=== PATIENT | male | born 1940 | race Caucasian/White ===

== ENCOUNTER → 2017-08-21 13:27 | Outpatient (CLI) | payer MEDICARE, SELFPAY ==
--- NOTE | 2017-08-21 13:38 | VDLE_ITS ---
Reason For Study: RT LEG PAIN RIGHT GSV is normal. CFV is compressible, spontaneous, phasic, competent and demonstrates normal augmentation. FV is compressible, spontaneous, phasic, competent and demonstrates normal augmentation. POP V is compressible, spontaneous, phasic, competent and demonstrates normal augmentation. T/P Trunk is compressible. PTV is compressible. RT PerV is compressible. Procedure Exam performed in department. A preliminary report was called and/or faxed to DR GARAY. Interpretation Summary Deep veins of the right lower extremity are patent and compressible segmentally. There is no evidence of right lower extremity deep vein thrombosis. Valvular competence appears intact within the proximal deep venous system on the right . The right greater saphenous vein appears patent and compressible segmentally. Ordering Physician: Wilmer Garay Referring Physician: ELIUD MARTIN Performed By: Piper Sterling, BHARGAV, RVT
== END ==
PROVIDERS: Family Provider Family Medicine; PCP Family Medicine; Visit Provider Orthopaedic Surgery
DX: M79.604 Pain in right leg (principal)
CPT/HCPCS: 93971

== ENCOUNTER → 2018-06-04 07:43 | Outpatient (CLI) | payer MEDICARE, SELFPAY ==
--- NOTE | 2018-06-04 07:48 | US_ITS ---
STUDY: ABDOMINAL ULTRASOUND - RIGHT UPPER QUADRANT REASON FOR VISIT: Male, 77 years old. Right upper quadrant pain. TECHNIQUE: Ultrasound evaluation of the right upper quadrant was performed with real-time and static glynn-scale imaging. TECHNICAL QUALITY: Adequate. COMPARISON: None. FINDINGS: Liver: The liver measures 16.5 cm. There is increased echogenicity consistent with fatty infiltration. The bile ducts are within normal limits. There is hepatic color flow. The direction of portal flow is hepatopetal. There is no demonstrated mass lesion. Gallbladder: Normal distended gallbladder. The gallbladder wall measures 2.2 mm. There is a negative sonographic Alfonso's sign. There is no pericholecystic fluid. There are no gallstones. Common Bile Duct (C.B.D.): The common bile duct measures 2.7 mm. Pancreas: Normal size of the head, body and tail of the pancreas. There is normal echogenicity of the pancreas. There is no demonstrated pancreatic mass or cyst. Right Kidney: Normal size of the right kidney. The right kidney measures 11.9 cm in length. Normal renal cortex. There is a 10.7 x 9.7 x 11.7 cm simple appearing right renal cyst. There is no right hydronephrosis. US/Abdomen Limited IMPRESSION: Fatty infiltration of the liver. 10.7 x 9.7 x 1.7 cm right renal cyst. Electronically Signed: Petrona Ratliff MD at 21:31 EST Tel , Service support ,
== END ==
PROVIDERS: Family Provider Family Medicine; PCP Family Medicine; Referring Provider Family Medicine; Visit Provider Family Medicine
DX: R10.11 Right upper quadrant pain (principal)
CPT/HCPCS: 76705

== ENCOUNTER → 2024-05-27 | Outpatient (CLI) | payer MEDICARE, SELFPAY ==
[2024-05-27 13:13] LABS: Hematocrit 44.8 % (40-54); Hemoglobin 14.7 g/dL (13.0-16.5); Mean Corp Hgb Conc 32.8 g/dL (32-36); Mean Corpuscular Hgb 30.7 pg (27.0-32.0); Mean Corpuscular Volume 93.5 fL (80-94); Mean Platelet Vol. 11.7 fl (6.2-12.0); Platelet Count 187 K/mm3 (150-450); RBC Distribution Width CV 13.6 % (11.6-14.6); RBC Distribution Width SD 46.5 fl (35.1-43.9); Red Blood Count 4.79 M/mm3 (4.6-6.2); White Blood Count 6.2 K/mm3 (4.4-11.0)
[2024-05-27 19:37] LABS: Vitamin D,25 Hydroxy 35.7 ng/mL (30-100)
[2024-05-28 04:51] LABS: PTHIN 77 pg/mL (11-61)
[2024-05-28 05:23] LABS: AST(SGOT) 27 U/L (<=37); Alanine Aminotransfer ALT/SGPT 26 U/L (<=46); Albumin, Serum 4.3 g/dL (3.4-4.8); Alkaline Phosphatase 78 U/L (40-129); Anion Gap 10 (5-15); BUN 23 mg/dL (4-19); BUN/Creat Ratio 20.7 RATIO (10-20); Calcium 10.5 mg/dL (7.6-11.0); Carbon Dioxide 29.8 mmol/L (22.0-29.0); Chloride 104 mmol/L (96-108); Creatinine, Serum 1.1 mg/dL (0.8-1.3); EST Glomerular Filtration Rate 66 (>60); Globulin 2.2 g/dL (2.2-4.2); Glucose 100 mg/dL (70-99); Iron 54 ug/dL (65-175); Potassium 4.4 mmol/L (3.3-5.1); Protein, Total 6.5 g/dL (5.9-8.4); Sodium Level 143 mmol/L (133-145); Total Bilirubin 0.48 mg/dL (0.00-1.30)
[2024-05-28 12:00] LABS: Cholesterol 125 mg/dL (<=200); High Density Lipoprotein 60 mg/dL; Low Density Lipoprotein Calc. 51 mg/dL; Triglycerides 69 mg/dL; Very Low Density Lipoprotein 14 mg/dL (5-40); cholesterol:hdl ratio screen 2.08
== END | disposition home or self-care (01) ==
LOC: MFPLAB 09:42
PROVIDERS: PCP Family Medicine; Referring Provider Family Medicine; Visit Provider Family Medicine
DX: E78.5 Hyperlipidemia, unspecified (principal); N18.9 Chronic kidney disease, unspecified
CPT/HCPCS: 36415; 80053; 80061; 82306; 83540; 83970; 85027

== ENCOUNTER → 2024-06-10 | Outpatient (CLI) | payer MEDICARE, SELFPAY ==
[2024-06-10 13:21] LABS: Anion Gap 13 (5-15); BUN 34 mg/dL (4-19); BUN/Creat Ratio 26.1 RATIO (10-20); Calcium,Total 10.6 mg/dL (7.6-11.0); Carbon Dioxide 29.3 mmol/L (21.0-32.0); Chloride 100 mmol/L (98-108); Creatinine, Serum 1.29 mg/dL (0.70-1.20); EST Glomerular Filtration Rate 56 (>60); Glucose 104 mg/dL (70-99); Potassium 4.1 mmol/L (3.3-5.1); Sodium Level 142 mmol/L (133-145)
== END | disposition home or self-care (01) ==
LOC: MFPLAB 10:31
PROVIDERS: PCP Family Medicine; Referring Provider Family Medicine; Visit Provider Family Medicine
DX: N18.9 Chronic kidney disease, unspecified (principal)
CPT/HCPCS: 36415; 80048

== ENCOUNTER 2024-07-09 11:12 | Outpatient (CLI) | payer MEDICARE, SELFPAY ==
[2024-07-09 11:15] LABS: Red Blood Cells-Urine 0 SEEN /hpf (0-5)
[2024-07-09 12:24] LABS: Hematocrit 45.1 % (40-54); Hemoglobin 15.1 g/dL (13.0-16.5); Mean Corp Hgb Conc 33.5 g/dL (32-36); Mean Corpuscular Hgb 30.5 pg (27.0-32.0); Mean Corpuscular Volume 91.1 fL (80-94); Mean Platelet Vol. 11.7 fl (6.2-12.0); Platelet Count 171 K/mm3 (150-450); RBC Distribution Width CV 14.1 % (11.6-14.6); RBC Distribution Width SD 46.8 fl (35.1-43.9); Red Blood Count 4.95 M/mm3 (4.6-6.2); White Blood Count 7.8 K/mm3 (4.4-11.0)
[2024-07-09 12:25] LABS: Erythrocyte Sedimentation Rate 2 mm/hr (0-20)
[2024-07-09 13:11] LABS: Glucose, Dipstick Normal (Normal); Ketone-Dipstick Negative (Negative); Leukocyte Esterase-Dipstick Negative /ul (Negative); Nitrite-Dipstick Negative (Negative); Occult Blood-Urine Negative /ul (Negative); Protein-Dipstick Negative (Negative); Specific Gravity, Urine 1.015 (1.002-1.030); Urine Bilirubin Dipstick Negative (Negative); Urine Urobilinogen Normal (Normal)
[2024-07-09 13:15] LABS: Color, Urine STRAW (Yellow); Urine Clarity Cloudy (Clear)
[2024-07-09 13:40] LABS: Amorphous Sediment 4+
[2024-07-09 13:41] LABS: Mucous, Urine RARE /hpf (<or=2+); Squamous Epithelial Cells - UA 0-5 SEEN /hpf (0-5)
[2024-07-09 13:42] LABS: Bacteria 1+ /hpf (None Seen); White Blood Cells 0-5 SEEN /hpf (0-5)
[2024-07-09 15:54] LABS: ALB/GLOB Ratio 1.7 RATIO (0.9-2.4); AST(SGOT) 24 U/L (<=37); Alanine Aminotransfer ALT/SGPT 27 U/L (<=46); Albumin, Serum 4.2 g/dL (3.4-4.8); Alkaline Phosphatase 71 U/L (40-129); Anion Gap 10 (5-15); BUN 28 mg/dL (4-19); BUN/Creat Ratio 24.6 RATIO (10-20); Calcium,Total 10.1 mg/dL (7.6-11.0); Chloride 101 mmol/L (98-108); Creatinine, Serum 1.14 mg/dL (0.70-1.20); EST Glomerular Filtration Rate 65 (>60); Globulin 2.5 g/dL (2.2-4.2); Glucose 97 mg/dL (70-99); Potassium 3.7 mmol/L (3.3-5.1); Protein, Total 6.7 g/dL (5.9-8.4); Sodium Level 141 mmol/L (133-145); Total Bilirubin 0.58 mg/dL (0.00-1.30)
[2024-07-09 17:11] LABS: Iron 54 ug/dL (65-175)
[2024-07-09 17:13] LABS: Vitamin B12 643 pg/mL (180-914)
== END 2024-07-09 23:59 | disposition home or self-care (01) ==
LOC: MFPLAB 11:13
PROVIDERS: PCP Family Medicine; Referring Provider Family Medicine; Visit Provider Family Medicine
DX: R41.89 Other symptoms and signs involving cognitive functions and awareness (principal); F03.90 Unspecified dementia, unspecified severity, without behavioral disturbance, psychotic disturbance, mood disturbance, and anxiety
CPT/HCPCS: 80053; 81001; 82306; 82607; 83540; 84443; 85027; 85652; 87086

== ENCOUNTER → 2024-07-14 | Outpatient (CLI) | payer MEDICARE, SELFPAY ==
--- NOTE | 2024-07-14 10:09 | VDLE_ITS ---
Reason For Study Reason For Study: Swelling RLE RIGHT LEFT GSV is normal. CFV is compressible, spontaneous, phasic, competent, CFV is compressible, spontaneous, phasic, competent and demonstrates normal augmentation. and demonstrates normal augmentation. FV is compressible, spontaneous, phasic, competent and demonstrates normal augmentation. POP V is compressible, phasic, and INCOMPETENT for greater than 1.0 second. T/P Trunk is compressible. PTV is compressible. RT PerV is compressible. SFJ is competent and measures 0.38cm x 0.39 cm. GSV proximal thigh measures 0.37cm x 0.34 cm. GSV at knee measures 0.35cm x 0.40 cm. GSV is competent throughout. SSV mid calf is competent and measures 0.30cm x 0.31 cm. ASV proximal calf is INCOMPETENT for greater than 0.5 seconds and measures 0.18cm x 0.20 cm. Procedure This is a venous duplex using B-mode, color flow and spectral Doppler. Exam performed in department. A preliminary report was called and/or faxed to Tamie SNIDER. VL/Venous Duplex US, Unilateral Interpretation Summary Deep veins of the right lower extremity are patent and compressible segmentally . There is no evidence of right lower extremity deep vein thrombosis. The right great saphenous vein appears patent a nd compressible segmentally. Positive for reflux in the right popliteal vein, accessory saphenous vein in th e calf Ordering Physician: Tamie Hannah Referring Physician: Cecil Kwok Performed By: Sandra Rose, BHARGAV, RVT
== END | disposition home or self-care (01) ==
LOC: CVS 10:07
PROVIDERS: PCP Family Medicine; Referring Provider Physician Assistant; Visit Provider Physician Assistant
DX: S80.821A Blister (nonthermal), right lower leg, initial encounter (principal); M79.89 Other specified soft tissue disorders; X58.XXXA Exposure to other specified factors, initial encounter
CPT/HCPCS: 93971

== ENCOUNTER → 2024-09-06 | Outpatient (CLI) | payer MEDICARE, SELFPAY ==
--- OUTSIDE RECORDS SUMMARY | 2024-09-06 14:37 | XMS RPT_ITS | CCD ---
Author Organization [facility] Care Team Providers Care Implant Coordinator Name Role Phone SHERI ECHEVARRIA Primary Care Physi wesley Unavailable Primary Care Provider Unavailabl e SIGNS, YAMILETH Attending Unavailable SHERI POLANCO Referring Unavailable SHEFFIELD DO, CYNTHIA Kay Primary Care Physician SHEFFIELD DO, CYNTHIA E Attending Unavailable SHEFFIELD DO, CYNTHIA E Primary Care Unavailable SHEFFIELD DO, CYNTHIA E Attending Unavailable SHEFFIELD DO, CYNTHIA E Primary Care Unavailable SHEFFIELD DO, CYNTHIA E Attending Unavailable SHEFFIELD DO, CYNTHIA E Primary Care Unavailable SHEFFIELD DO, CYNTHIA E Attending Unavailable SHEFFIELD DO, CYNTHIA E Primary Care Unavailable SHEFFIELD DO, CYNTHIA E Attending Unavailable SHEFFIELD DO, CYNTHIA E Primary Care Unavailable SHEFFIELD DO, CYNTHIA E Attending Unavailable SHEFFIELD DO, CYNTHIA E Primary Care Unavailable SHEFFIELD DO, CYNTHIA E Attending Unavailable SHEFFIELD DO, CYNTHIA E Primary Care Unavailable SHEFFIELD DO, CYNTHIA E Attending Unavailable SHEFFIELD DO, CYNTHIA E Primary Care Unavailable SHEFFIELD DO, CYNTHIA E Attending Unavailable SHERI ECHEVARRIA Primary Care Un available SHEFFIELD DO, CYNTHIA E Attending Unavailable SHEFFIELD DO, CYNTHIA E Primary Care Unavailable Dr. Cecil Kwok MD Primary Care Provider Dr. Cecil Kwok MD Attending Provider Dr. Cecil Kwok MD Referring Provider Tamie Tao Attending Provider Tamie Tao Referring Provider [phone] Terrence Goodwin MD Attending Provider [phone] Tamie Hannah Attending Unavailable Tamie Hannah Referring Unavailable Cecil Kwok Primary Care Unavailable Ranney, Christopher Referring Unavailable Ranney, Christopher Primary Care Unavailable Ranney, Christopher Attending Unavailable Ranney, Christopher Referring Unavailable Ranney, Christopher Primary Care Unavailable Rissa, Sivakumarer Attending Unavailable Brielle, Tamie Attending Unavailable Ranney, Christopher Referring Unavailable Ranney, Christopher Primary Care Unavailable Terrence Goodwin Attending Unavailable Hannah, Tamie Referring Unavailable Ranney, Christopher Primary Care Unavailable Ranney, Christopher Referring Unavailable Tamie Hannah Attending Unavailable Ranney, Christopher Primary Care Unavailable Rankathy, Manuelopher Attending Unavailable Ranney, Christopher Referring Unavailable Ranney, Christopher Primary Care Unavailable Ranney, Christopher Referring Unavailable Ranney, Christopher Primary Care Unavailable Sivakumar Kwoker Attending Unavailable Medications Current Medications Medication Drug Class(es) Dates Sig (Normalized) Sig (Original) B-Complex SR (9 sources) Start: 03-09-2023 B-Complex SR Oral, qDay, 0 Refill(s) Start Date: 03/09/23 Status: Ordered betamethasone 0.5 mg/ml topical cream (12 sources) Corticosteroid Start: 11-01-2022 betamethasone dipropionate 0.05% topical cream Apply 1 charisse, Topical, qDay, PRN itching skin lesion, To affected area itching skin lesion as needed up to once daily, # 30 gram(s), 1 Refill(s), Pharmacy: [facility], Cream, 182.9, cm, 06/06/22 9:15:00 EST, Height, 114.2, kg, 11/01/22 14:38:00 EDT, Dosing Weight Start Date: 11/01/22 Status: Ordered Start: 06-06-2022 End: 07-06-2022 betamethasone dipropionate 0 .05% topical cream Apply 1 charisse, Topical, BID, X 30 day(s), # 15 gram(s), 0 Refill(s), Pharmacy: [facility], Cream, 182.9, cm, 06/06/22 9:15:00 EST, Height, 114.5 Start Date: 06/06/22 Stop Date: 07/06/22 Status: Ordered DME MISCellaneous (16 sources) Start: 05-30-2023 DME MISCellane ous See Instructions, Knee-high compression stockings - Medium (15-20 mmHg).., # 1 EA, 0 Refill(s), Leg swelling, 112.4 Start Date: 05/30/23 Status: Ordered Start: 05-30-2023 DME MISCellane ous See Instructions, Knee-high compression stockings - Mild (8-15 mmHg), # 1 EA, 0 Refill(s), Leg swelling, 112.4 Start Date: 05/30/23 Status: Ordered docusate sodium 100 mg oral capsule (13 sources) Start: 03-09-2023 Colace 100 mg oral capsule Dose : 100 mg = 1 cap(s), Oral, BID, PRN as needed for constipation, # 20 cap(s), 3 Refill(s), Pharmacy: [facility], 181.4, cm, 03/09/23 9:17:00 EST, Height, kg, 03/09/23 9:17:00 EST, Dosing Weight Start Date: 03/09/23 Status: Ordered Start: 11-16-2020 End: 12-30-2020 Colace 100 mg oral capsule D ose : 100 mg = 1 cap(s), Oral, BID, PRN as needed for constipation, # 20 cap(s), 0 Refill(s), Pharmacy: [facility], 182, cm, 05/27/20 8:48:00 EST, Height, kg, 05/27/20 8:42:00 EST, Dosing Weight Start Date: 11/16/20 Stop Date: 12/30/20 Status: Ordered finasteride 5 mg oral tablet (3 sources) 5-alpha Reductase Inhibitor Start: 11-21-2021 End: 11-16-2022 finasteride 5 mg oral tablet Dose : 5 mg = 1 tab(s), Oral, qDay, # 90 tab(s), 3 Refill(s), Pharmacy: [facility] ([facility]), 182, cm, 08/22/21 8:04:00 EDT, Height, kg, 08/22/21 8:04:00 EDT, Dosing Weight Start Date: 11/21/21 Stop Date: 11/16/22 Status: Ordered Ibuprofen (13 sources) Nonsteroidal Anti-inflammatory Drug Start: 03-19-2019 ibuprofen 0 Refill(s) Start Date: 03/19/19 Status: Ordered meloxicam 15 mg oral tablet (8 sources) Nonsteroidal Anti-inflammatory Drug Start: 05-30-2023 take 1 tablet by mouth once daily meloxicam 15 mg oral tablet TAKE 1 TABLET BY MOUTH EVERY DAY Start Date: 05/30/23 Status: Ordered 24 hr mirabegron 50 mg extended release oral tablet (2 sources) beta3-Adrenergic Agonist Start: 06-06-2022 Myrbetriq 50 mg oral tablet, extended release Dose : 50 mg = 1 tab(s), TAKE 1 TABLET BY MOUTH EVERY DAY Start Date: 06/06/22 Status: Ordered 24 hr oxybutynin chloride 10 mg extended release oral tablet (6 sources) Cholinergic Muscarinic Antagonist Start: 03-09-2023 take 1 tablet by mouth every hour, then take 1 tablet by mouth once daily oxybutynin 10 mg/24 hr oral tablet, extended release Dose : 10 mg = 1 tab(s), Oral, qDay, # 90 tab(s), 1 Refill(s), Pharmacy: [facility], 181.4, cm, 03/09/23 9:17:00 EST, Height, kg, 03/09/23 9:17:00 EST, Dosing Weight Start Date: 03/09/23 Status: Ordered Start: 02-03-2016 take 1 tablet by raj once daily Oxybutynin Chloride 10 MG tablet extended release 24hr Active 10 mg PO DAILY February 03, 2016 12:00am simvastatin 40 mg oral tablet (17 sources) HMG-CoA Reductase Inhibitor Start: 02-03-2016 take 1 tablet by mouth at bedtime Simvastatin 40 MG tablet Active 40 mg PO AT BEDTIME February 03, 2016 12:00am triamcinolone acetonide 1 mg/ml topical cream (9 sources) Corticosteroid Start: 03-09-2023 triamcinolone 0.1% topical cream Apply 1 charisse, Topical, BID, apply thin film to affected area. MAX 14 days, then 7 days break, # 30 gram(s), 0 Refill(s), Pharmacy: [facility], Cream, 181.4, cm, 03/09/23 9:17:00 EST, Height, 108.7, kg, 03/09/23 9:17:00 EST, Dosing Weight Start Date: 03/09/23 Status: Ordered Completed/Discontinued Medications Medication Drug Class(es) Dates Sig (Normalized) Sig (Original) acetaminophen 325 mg / HYDROcodone bitartrate 5 mg oral tablet (4 sources) Opioid Agonist Start: 01-25-2016 End: 09-20-2017 Hydrocodone-Acetam inophen 1 TABLET tablet Discontinued 1 - 2 {tbl} PO EVERY 6 HOURS NEEDED as needed for Pain January 25, 2016 3:44am September 20, 2017 2:08pm aspirin 325 mg oral tablet (20 sources) Platelet Aggregation Inhibitor, Nonsteroidal Anti-inflammatory Drug Start: 06-10-2024 Aspirin 325 mg tablet Discontinued 81 mg PO DAILY@799June 10, 2024 9:20am Start: 03-09-2023 aspirin 81 mg oral delayed release tablet Dose : 81 mg = 1 tab(s), Oral, qDay, # 90 tab(s), 3 Refill(s), Pharmacy: [facility], 181.4, cm, 03/09/23 9:17:00 EST, Height, kg, 03/09/23 9:17:00 EST, Dosing Weight Start Date: 03/09/23 Status: Ordered Start: 11-01-2022 aspirin 81 mg oral delayed release tablet Dose : 81 mg = 1 tab(s), Oral, qDay, # 90 tab(s), 0 Refill(s), Pharmacy: [facility], 182.9, cm, 06/06/22 9:15:00 EST, Height, kg, 11/01/22 14:38:00 EDT, Dosing Weight Start Date: 11/01/22 Status: Ordered Start: 11-28-2018 Aspir-Low 81 m g oral delayed release tablet Dose : 81 mg = 1 tab(s), Oral, Daily, 0 Refill(s) Start Date: 11/28/18 Status: Ordered Start: 02-03-2016 End: 06-10-2024 take 1 tablet by mouth once daily Aspirin 325 MG tablet Discontinued 325 mg PO DAILY@0800 February 03, 2016 12:00am June 10, 2024 9:24am calcitriol 0.74888 mg oral capsule (4 sources) Vitamin D3 Analog Start: 06-10-2024 take 1 capsule by mouth once daily Calcitriol 0.25 mcg capsule Discontinued 0.25 ug PO daily June 10, 2024 12:00am cholecalciferol 0.05 mg oral capsule (4 sources) Vitamin D Start: 06-10-2024 take 1 capsule by mouth once daily Cholecalciferol (Vitamin D3) 50 mcg (2,000 unit) capsule Discontinued 50 ug PO daily June 10, 2024 12:00am ezetimibe 10 mg oral tablet (17 sources) Dietary Cholesterol Absorption Inhibitor Start: 06-10-2024 take 1 tablet by mouth once daily Ezetimibe 10 mg tablet Discontinued 10 mg PO daily June 10, 2024 12:00am Start: 03-09-2023 ezetimibe 10 m g oral tablet Dose : 10 mg = 1 tab(s), Oral, qDay, # 90 tab(s), 3 Refill(s), Pharmacy: [facility], 181.4, cm, 03/09/23 9:17:00 EST, Height, kg, 03/09/23 9:17:00 EST, Dosing Weight Start Date: 03/09/23 Status: Ordered Start: 11-01-2022 ezetimibe 10 m g oral tablet Dose : 10 mg = 1 tab(s), Oral, qDay, # 90 tab(s), 3 Refill(s), Pharmacy: [facility], 182.9, cm, 06/06/22 9:15:00 EST, Height, kg, 11/01/22 14:38:00 EDT, Dosing Weight Start Date: 11/01/22 Status: Ordered Start: 11-21-2021 ezetimibe 10 m g oral tablet Dose : 10 mg = 1 tab(s), Oral, qDay, # 90 tab(s), 3 Refill(s), Pharmacy: [facility] ([facility]), 182, cm, 08/22/21 8:04:00 EDT, Height, kg, 08/22/21 8:04:00 EDT, Dosing Weight Start Date: 11/21/21 Status: Ordered ferrous fumarate 325 mg oral tablet (4 sources) Start: 06-10-2024 take 1 tablet by mouth once daily Ferrous Fumarate 325 mg (106 mg iron) tablet Discontinued 325 mg PO daily June 10, 2024 12:00am furosemide 20 mg oral tablet (12 sources) Loop Diuretic Start: 06-10-2024 take 1 tablet by mouth once daily in the morning Furosemide (Lasix) 20 mg tablet Discontinued 20 mg PO EVERY MORNING June 10, 2024 12:00am Start: 08-21-2023 furosemide 20 mg oral tablet Dose : 20 mg = 1 tab(s), Oral, qDay, # 14 tab(s), 1 Refill(s), Pharmacy: [facility], 181, cm, 08/04/23 8:06:00 EDT, Height, kg, 08/04/23 8:06:00 EDT, Dosing Weight Start Date: 08/21/23 Status: Ordered Start: 07-13-2023 furosemide 20 mg oral tablet Dose : 20 mg = 1 tab(s), Oral, qDay, # 14 tab(s), 0 Refill(s), Pharmacy: [facility], 179.5, cm, 07/03/23 11:32:00 EDT, Height, kg, 07/03/23 11:22:00 EDT, Dosing Weight Start Date: 07/13/23 Status: Ordered Start: 07-03-2023 furosemide 20 mg oral tablet Dose : 20 mg = 1 tab(s), Oral, qDay, # 90 tab(s), 0 Refill(s), Pharmacy: [facility], 179.5, cm, 07/03/23 11:32:00 EDT, Height, kg, 07/03/23 11:22:00 EDT, Dosing Weight Start Date: 07/03/23 Status: Ordered Start: 06-08-2023 furosemide 20 mg oral tablet Dose : 20 mg = 1 tab(s), Oral, qDay, # 30 tab(s), 1 Refill(s), Pharmacy: [facility], 179.5, cm, 06/08/23 13:22:00 EST, Height, kg, 06/08/23 13:22:00 EST, Dosing Weight Start Date: 06/08/23 Status: Ordered Start: 05-30-2023 furosemide 20 mg oral tablet Dose : 20 mg = 1 tab(s), Oral, qDay, Take 40mg for 3 days then 20mg for remaining 7 days, # 10 tab(s), 0 Refill(s), Pharmacy: [facility], Leg swelling, 181.4, cm, 05/30/23 13:12:00 EST, Height, kg, 05/30/23 12:58:00 EST, Dosing Weight Start Date: 05/30/23 Status: Ordered indapamide 2.5 mg oral tablet (20 sources) Thiazide-like Diuretic Start: 06-10-2024 take 1 tablet by mouth once daily in the morning Indapamide 2.5 mg tablet Discontinued 2.5 mg PO EVERY MORNING June 10, 2024 12:00am Start: 03-09-2023 indapamide 1.2 5 mg oral tablet Dose : 1.25 mg = 1 tab(s), Oral, qAM, # 90 tab(s), 1 Refill(s), Pharmacy: [facility], 181.4, cm, 03/09/23 9:17:00 EST, Height, kg, 03/09/23 9:17:00 EST, Dosing Weight Start Date: 03/09/23 Status: Ordered Start: 11-01-2022 indapamide 1.2 5 mg oral tablet Dose : 1.25 mg = 1 tab(s), Oral, qAM, # 90 tab(s), 1 Refill(s), Pharmacy: [facility], 182.9, cm, 06/06/22 9:15:00 EST, Height, kg, 11/01/22 14:38:00 EDT, Dosing Weight Start Date: 11/01/22 Status: Ordered Start: 11-21-2021 indapamide 1.2 5 mg oral tablet Dose : 1.25 mg = 1 tab(s), Oral, qAM, # 90 tab(s), 3 Refill(s), Pharmacy: [facility] ([facility]), 182, cm, 08/22/21 8:04:00 EDT, Height, kg, 08/22/21 8:04:00 EDT, Dosing Weight Start Date: 11/21/21 Status: Ordered Start: 02-03-2016 End: 09-20-2017 take 1 tablet by mouth once daily Indapamide 1.25 MG tablet Discontinued 1.25 mg PO DAILY February 03, 2016 12:00am September 20, 2017 2:08pm Molnupiravir (8 sources) Start: 04-13-2022 End: 04-13-2022 take 1 capsule by mouth every twelve hours Molnupiravir 200 mg capsule Discontinued 800 mg PO Q12H 40 5 April 13, 2022 1:00am April 17, 2022 1:00am April 13, 2022 6:14pm Start: 04-13-2022 End: 04-18-2022 take 1 capsule by mouth every twelve hours Molnupiravir 200 mg capsule Discontinued 800 mg PO Q12H 40 5 April 13, 2022 1:00am April 17, 2022 1:00am April 18, 2022 1:04am niacin 500 mg oral tablet (4 sources) Nicotinic Acid Start: 02-03-2016 End: 06-10-2024 take 1 tablet by mouth at bedtime Niacin 500 MG tablet Discontinued 500 mg PO AT BEDTIME February 03, 2016 12:00am June 10, 2024 9:18am ondansetron 8 mg disintegrating oral tablet (4 sources) Serotonin-3 Receptor Antagonist Start: 06-10-2022 End: 06-10-2024 take 1 tablet by mouth every eight hours as needed for nausea and vomiting Ondansetron 8 mg tablet,disintegrat ing Discontinued 8 mg PO Q8H as needed for nausea and vomiting June 10, 2022 1:00am June 10, 2024 9:18am potassium chloride 10 meq extended release oral capsule (9 sources) Start: 06-10-2024 take 1 capsule by mouth once daily Potassium Chloride 10 mEq capsule, extended release Discontinued 10 meq PO daily June 10, 2024 12:00am Start: 07-03-2023 Potassium Chlo ride (Eqv-K-Tab) 10 mEq oral tablet, extended release Dose : 10 mEq = 1 tab(s), Oral, qDay, # 90 tab(s), 0 Refill(s), Pharmacy: [facility], 179.5, cm, 07/03/23 11:32:00 EDT, Height, kg, 07/03/23 11:22:00 EDT, Dosing Weight Start Date: 07/03/23 Status: Ordered tamsulosin hydrochloride 0.4 mg oral capsule (7 sources) alpha-Adrenergic Rush Start: 01-25-2016 End: 06-10-2024 take 1 capsule by mouth once daily Tamsulosin 0.4 MG capsule Discontinued 0.4 mg PO DAILY January 25, 2016 12:00am June 10, 2024 9:20am thiamine 100 mg oral tablet (4 sources) Start: 06-10-2024 take 1 capsule by mouth once daily Thiamine Hcl (Vitamin B1) 100 mg capsule Discontinued 100 mg PO daily June 10, 2024 12:00am Problems Problem Classification Problem Date Documented Date Episodic/Chronic Allergic reactions (13 sources) Chronic hand eczema 05-28-2019 Episodic Chronic kidney disease (6 sources) Chronic kidney disease stage 3A ; Translations: [Chronic kidney disease, unspecified] Onset: 06-20-2024 07-03-2023 Chronic Chronic ulcer of skin (6 sources) Ulcer of skin of lower extremity; Translations: [Non-pressure chronic ulcer of unspecified part of right lower leg with unspecified severity] 06-12-2024 Chronic Delirium, dementia, and amnestic and other cognitive disorders (1 source) Unspecified dementia without behavioral disturbance; Translations: [Unspecified dementia, unspecified severity, without behavioral disturbance, psychotic disturbance, mood disturbance, and anxiety] Onset: 09-04-2024 Chronic Disorders of lipid metabolism (16 sources) Mixed hyperlipidemia; Translations: [Mixed hyperlipidemia] Onset: 07-06-2022 12-06-2018 Chronic Essential hypertension (17 sources) Benign hypertension; Translations: [Hypertensive disorder] Onset: 07-06-2022 12-06-2018 Chronic Genitourinary symptoms and ill-defined conditions (7 sources) Urge incontinence of urine 06-08-2023 Chronic Hyperplasia of prostate (13 sources) Benign prostatic hyperplasia 12-06-2018 Chronic Immunizations and screening for infectious disease (9 sources) False-positive serological test for syphilis; Translations: [Other specified abnormal immunological findings in serum] Onset: 07-06-2022 Episodic Intestinal infection (4 sources) Viral gastroenteritis; Translations: [Viral intestinal infection, unspecified] 06-10-2022 Episodic Nausea and vomiting (4 sources) Vomiting; Translations: [Vomiting, unspecified] 06-10-2022 Episodic Osteoarthritis (3 sources) Osteoarthritis of bilateral hip joints; Translations: [Bilateral primary osteoarthritis of hip] Onset: 07-06-2022 Chronic Other and ill-defined cerebrovascular disease (3 sources) Cerebrovascular disease; Translations: [Cerebral ischemia] Onset: 07-06-2022 Chronic Other connective tissue disease (7 sources) Swelling of right lower limb; Translations: [Other specified soft tissue disorders] 09-20-2017 Episodic Other diseases of veins and lymphatics (6 sources) Lymphedema; Translations: [Lymphedema, not elsewhere classified] 06-12-2024 Chronic Other ear and sense organ disorders (9 sources) Hearing difficulty 03-09-2023 Chronic Other ear and sense organ disorders (9 sources) Does use hearing aid 03-09-2023 Episodic Other nervous system disorders (1 source) Other symptoms and signs involving cognitive functions and awareness; Translations: [Other symptoms and signs involving cognitive functions and awareness] Onset: 07-25-2024 Episodic Other skin disorders (15 sources) Actinic keratosis; Translations: [Actinic keratosis] Onset: 07-06-2022 05-26-2021 Episodic Residual codes; unclassified (1 source) Amnesia; Translations: [Other amnesia] Episodic Residual codes; unclassified (13 sources) Memory impairment 11-24-2021 Episodic Residual codes; unclassified (7 sources) Edema of lower extremity 06-08-2023 Episodic Sexually transmitted infections (not HIV or hepatitis) (1 source) 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 [place], [place] [address] OFFICE VISIT Date of Service: 07/18/24 MR#: [id number] Acct: [id number] Name: SUNDAYLILI Rep #: [id number] : 1940 Provider: TYLOR Prado Age/Sex: 83/M Location: [facility] Status: Signed Intake Vital Signs 04/13/22 16:00 07/18/24 09:25 Height 5 ft 9.25 in Weight: 213 lb BP 104/62 Blood Pressure Location Lt brachial Position Sitting Respiration 18 Pulse 81 Pulse Source Monitor Temp 97.8 F Temp Source Temporal Pulse Oximetry (%) 97 Oxygen Delivery Method room air Intake Visit Reasons: 1 M FU Is patient in pain?: No Allergies No Known Allergies Allergy (Verified 07/18/24 09:28) Medications ???Medication ???Instructions ???Recorded ???Confirmed ???Type oxybutynin chloride 10 mg 10 mg PO DAILY 02/03/16 07/18/24 H istory tablet,extended release 24 hr simvastatin 40 mg tablet 40 mg PO QHS 02/03/16 07/18/24 His tory calcitriol 0.25 mcg capsule 0.25 mcg PO QDAY 06/10/24 07/18/24 History cholecalciferol (vitamin D3) 50 50 mcg PO QDAY 06/10/24 07/18/24 H istory mcg (2,000 unit) capsule ezetimibe 10 mg tablet 10 mg PO QDAY 06/10/24 07/18/24 Hi story ferrous fumarate 325 mg (106 mg 325 mg PO QDAY 06/10/24 07/18/24 H istory iron) tablet furosemide 20 mg tablet (Lasix) 20 mg PO QAM 06/10/24 07/18/24 His tory indapamide 2.5 mg tablet 2.5 mg PO QAM 06/10/24 07/18/24 Hi story potassium chloride 10 mEq 10 meq PO QDAY 06/10/24 07/18/24 H istory capsule,extended release thiamine HCl (vitamin B1) 100 mg 100 mg PO QDAY 06/10/24 07/18/24 H istory capsule Have you fallen in the past year?: Yes PFSH Medical History (Updated 07/18/24 @ 12:15 by TYLOR Prado) COVID-19 Contact with and (suspected) exposure to other viral communicable diseases Right leg swelling Leg swelling Hyperlipidemia Hemorrhoids HTN (hypertension) Osteoarthritis Chronic back pain Surgical History S/P colonoscopy S/P right inguinal hernia repair Status post right hip replacement S/p total knee replacement, bilateral Family History Mother CAD (coronary artery disease) Father Cancer spine Social History Smoking Status: Never smoker HPI HPI HPI: LILI SUNDAY, is a 83 M who presents to the office today for follow-up of RLE lymphedema. He has been wearing compression stockings as directed. He reports he could be a bit better about elevating his legs, but he has been doing this more. His prior R shields wounds have healed. He reports his swelling is much improved and both legs are feeling very good. He has no concerns today. ROS General General: Yes weight change and appetite; No fatigue, colon cancer, breast cancer or weakness HEENT HEENT: Yes hoarseness; No difficulty swallowing, eye injury, eye surgery or swollen glands Endo Endocrine: Yes cold intolerance; No thyroid disease, diabetes mellitus, thyroid cancer, Hair loss or heat intolerance Skin Skin: No rash or changing moles Musc Musculoskeletal: Yes joint pain; No back problems, arthritis, rheumatoid arthritis or gout Cardio Cardiovascular: Yes high blood pressure; No murmur, pacemaker, heart disease, atrial fibrillation, heart attack, heart stent, palpitations, shortness of breath with exertion or chest pain Psych Psychiatric: No depression, anxiety or hearing voices Resp Respiratory: Yes shortness of breath, No sleep apnea, No cough, No COPD, No asthma, No emphysema and No wheezing Gastro Gastrointestinal: No abdominal pain, No nausea or vomiting, No diarrhea, Yes constipation, No blood in stool, No acid reflux, No hemorrhoids, No ulcers, No gallbladder problem and No black,tarry stoo ls Chang Hematologic: No blood thinners, No blood disorders, No bleeding, No anemia and No blood clots Neuro Neurologic: No system reviewed and no additional complaints, except as documented, No as per HPI, No abnormal gait, Yes abnormal hearing, No abnormal movements, No abnormal speech, No behavioral changes, No burning sensations, Yes confusion, No convulsions, No disequilibrium, No dizziness, No localized weakness, No frequent falls, No headache(s), No lack of coordination, No loss of vision, No memory loss, Yes numbness, No other visual disturbances, No radicular pain, No restless legs, No sensory deficit, No syncope, No tingling, No tremor(s), No weakness and No other Exam Const General: cooperative, comfortable and no acute distress Orientation: alert, awake and oriented x3 HENMT Head: normal to inspection, normocephalic and atraumatic Ears: hearing grossly caryn (more content not included)... Normal [facility] Venous Duplex US, Unilateral on 07-14-2024 Venous Duplex US, Unilateral [facility] [address] [place] [address] Venous Duplex US, Unilateral 07/14/24 1013 MR#: [id number] Acct: [id number] Name: SUNDAYLILI Rep #: [id number] : 1940 83 From: Terrence Goodwin MD Attending Dr: TYLOR Prado Status: REG CLI Ordering Dr: Tamie Hannah Date: 07/14/24 Location: [facility] Sex: M C Admitted: Reason For Study Reason For Study: Swelling RLE RIGHT LEFT GSV is normal. CFV is compressible, spontaneous, phasic, competent, CFV is compressible, spontaneous, phasic, competent and demonstrates normal augmentation. and demonstrates normal augmentation. FV is compressible, spontaneous, phasic, competent and demonstrates normal augmentation. POP V is compressible, phasic, and INCOMPETENT for greater than 1.0 second. T/P Trunk is compressible. PTV is compressible. RT PerV is compressible. SFJ is competent and measures 0.38cm x 0.39 cm. GSV proximal thigh measures 0.37cm x 0.34 cm. GSV at knee measures 0.35cm x 0.40 cm. GSV is competent throughout. SSV mid calf is competent and measures 0.30cm x 0.31 cm. ASV proximal calf is INCOMPETENT for greater than 0.5 seconds and measures 0.18cm x 0.20 cm. Procedure This is a venous duplex using B-mode, color flow and spectral Doppler. Exam performed in department. A preliminary report was called and/or faxed to Tamie SNIDER. VL/Venous Duplex US, Unilateral Interpretation Summary Deep veins of the right lower extremity are patent and compressible segmentally. There is no evidence of right lower extremity deep vein thrombosis. The right great saphenous vein appears patent and compressible segmentally. Positive for reflux in the right popliteal vein, accessory saphenous vein in the calf __ Ordering Physician: Tamie Hannah Referring Physician: Cecil Kwok Performed By: Sandra Rose, BHARGAV, RVT 07/14/24 1700 Date Terrence Goodwin MD CC: TYLOR Prado; Dr. Cecil Kwok MD Date Dictated: 07/14/24 1013 Date Transcribed: 07/14/241699 Drapery Counselor: Signed Normal [facility] Venous duplex ultrasound rep ortOrdered By: Terrence Goodwin on 07-14-2024 US Vein [facility] [address] [place] [address] Venous Duplex US, Unilateral 07/14/24 1013 MR#: [id number] Acct: [id number] Name: LILI Carter Rep #:[id number] : 1940 83 From: Terrence Spicer Attending Dr: TYLOR Prado Stat us: REG CLI Ordering Dr: Tamie Hannah Date: Location: CVS Sex: M C Admitted: Reason For Study Reason For Study: Swelling RLE RIGHT LEFT GSV is normal. CFV is compressible, spontaneous, phasic, competent, CFV is compressible, spontaneous, phasic, competent and demonstrates normal augmentation. and demonstrates normal augmentation. FV is compressible, spontaneous, phasic, competent and demonstrates normal augmentation. POP V is compressible, phasic, and INCOMPETENT for greater than 1.0 second. T/P Trunk is compressible. PTV is compressible. RT PerV is compressible. SFJ is competent and measures 0.38cm x 0.39 cm. GSV proximal thigh measures 0.37cm x 0.34 cm. GSV at knee measures 0.35cm x 0.40 cm. GSV is competent throughout. SSV mid calf is competent and measures 0.30cm x 0.31 cm. ASV proximal calf is INCOMPETENT for greater than 0.5 seconds and measures 0.18cm x 0.20 cm. Procedure This is a venous duplex using B-mode, color flow and spectral Doppler. Exam performed in department. A preliminary report was called and/or faxed to Tamie SNIDER. VL/Venous Duplex US, Unilateral Interpretation Summary Deep veins of the right lower extremity are patent and compressible segmentally.There is no evidence of right lower extremity deep vein thrombosis. The right great saphenous vein appears patent and compressible segmentally. Positive for reflux in the right popliteal vein, accessory saphenous vein in thecalf __ Ordering Physician: Tamie Hannah Referring Physician: Cecil Kwok Performed By: Sandra Rose, RDCS, RVT 07/14/24 1700 Date _ Terrence Goodwin MD CC: TYLOR Pardo; Dr. Cecil Kwok MD ~ Date Dictated: 07/14/24 1013 Date Transcribed: 07/14/241699 Drapery Counselor: Signed [facility] Work Phone: Urine Cultureon 07-10-2024 UR Order Date: 07/09/24 Order Info: [id number] - CUUR Culture exhibits no growth. Normal [facility] Comment on above: Performed By: #### L 501.9520, L500.4050, M100.2200, L100.0500, L400.0001, L101.9900, L503.6150 ####[facility] [address] [place], [place], [id number] Amorphous sediment detection in urine sediment by light microscopyOrdered By: Cecil Kwok on 07-09-2024 Amorphous sediment LM Ql (Urine sed) 4+ [facility] Anion gap in Serum or Plasma Ordered By: Cecil Kwok on 07-09-2024 Anion gap [Moles/Vol] 10 mmol/L 5-15 [facility] BUN/creatinine ratioOrdered By: Cecil Kwok on 07-09-2024 Urea nitrogen/Creatinine [Mass ratio] 24.6 mg/mg High 10-20 [facility] Bilirubin Test strip Ql (U)O rdered By: Cecil Kwok on 07-09-2024 Bilirubin Ql (U) Negative Negative [facility] Bilirubin, totalOrdered By: Cecil Kwok on 07-09-2024 Bilirubin [Mass/Vol] 0.58 mg/dL 0.00-1.[address] [facility] CBC-Complete Blood Cnt No Di ffon 07-09-2024 Erythrocyte distribution width (RBC) [Ratio] 14.1 % Normal 11.6-14.6 [facility] Comment on above: Order Comment: Order Date: 07/09/24 Order Info: [id number] - CBC Order Info: [id number] - SED Performed By: #### L 501.9520, L500.4050, M100.2200, L100.0500, L400.0001, L101.9900, L503.6150 #### [facility] [address] [place], [place], [id number] Hematocrit (Bld) [Volume fraction] 45.1 % Normal 40-54 [facility] Comment on above: Order Comment: Order Date: 07/09/24 Order Info: [id number] - CBC Order Info: [id number] - SED Performed By: #### L 501.9520, L500.4050, M100.2200, L100.0500, L400.0001, L101.9900, L503.6150 #### [facility] [address] [place], [address] Hemoglobin (Bld) [Mass/Vol] 15.1 g/dL Normal 13.0-16.5 [facility] Comment on above: Order Comment: Order Date: 07/09/24 Order Info: [id number] - CBC Order Info: [id number] - SED Performed By: #### L 501.9520, L500.4050, M100.2200, L100.0500, L400.0001, L101.9900, L503.6150 #### [facility] [address] [place], [address] MCH (RBC) [Entitic mass] 30.5 pg Normal 27.0-32.0 [facility] Comment on above: Order Comment: Order Date: 07/09/24 Order Info: [id number] - CBC Order Info: [id number] - SED Performed By: #### L 501.9520, L500.4050, M100.2200, L100.0500, L400.0001, L101.9900, L503.6150 #### [facility] [address] [place], [address] MCHC (RBC) [Mass/Vol] 33.5 g/dL Normal 32-36 [facility] Comment on above: Order Comment: Order Date: 07/09/24 Order Info: [id number] - CBC Order Info: [id number] - SED Performed By: #### L 501.9520, L500.4050, M100.2200, L100.0500, L400.0001, L101.9900, L503.6150 #### [facility] [address] [place], [address] MCV (RBC) [Entitic vol] 91.1 fL Normal 80-94 [facility] Comment on above: Order Comment: Order Date: 07/09/24 Order Info: [id number] - CBC Order Info: [id number] - SED Performed By: #### L 501.9520, L500.4050, M100.2200, L100.0500, L400.0001, L101.9900, L503.6150 #### [facility] [address] [place], [address] Platelet mean volume (Bld) [Entitic vol] 11.7 fL Normal 6.2-12.0 [facility] Comment on above: Order Comment: Order Date: 07/09/24 Order Info: [id number] - CBC Order Info: [id number] - SED Performed By: #### L 501.9520, L500.4050, M100.2200, L100.0500, L400.0001, L101.9900, L503.6150 #### [facility] [address] [place], [address] Platelets (Bld) [#/Vol] 171 10*3/uL Normal 150-450 [facility] Comment on above: Order Comment: Order Date: 07/09/24 Order Info: [id number] - CBC Order Info: [id number] - SED Performed By: #### L 501.9520, L500.4050, M100.2200, L100.0500, L400.0001, L101.9900, L503.6150 #### [facility] [address] [place], [address] RBC (Bld) [#/Vol] 4.95 10*6/uL Normal 4.6-6.2 [facility] Comment on above: Order Comment: Order Date: 07/09/24 Order Info: [id number] - CBC Order Info: [id number] - SED Performed By: #### L 501.9520, L500.4050, M100.2200, L100.0500, L400.0001, L101.9900, L503.6150 #### [facility] [address] [place], [address] RDW SD 46.8 fl High 35.1-43.9 [facility] Comment on above: Order Comment: Order Date: 07/09/24 Order Info: [id number] - CBC Order Info: [id number] - SED Performed By: #### L 501.9520, L500.4050, M100.2200, L100.0500, L400.0001, L101.9900, L503.6150 #### [facility] [address] [place], [place], [id number] [phone] WBC (Bld) [#/Vol] 7.8 10*3/uL Normal 4.4-11.0 [facility] Comment on above: Order Comment: Order Date: 07/09/24 Order Info: [id number] - CBC Order Info: [id number] - SED Performed By: #### L 501.9520, L500.4050, M100.2200, L100.0500, L400.0001, L101.9900, L503.6150 #### [facility] [address] [place], [place], [id number] Carbon dioxide, total [Moles /volume] in Central venous bloodOrdered By: Cecil Kwok on 07-09-2024 CO2 [Moles/Vol] 30.0 mmol/L 21.0-32.0 [facility] Chloride assayOrdered By: Laci Kwok on 07-09-2024 Chloride [Moles/Vol] 101 mmol/L 98-[address] [facility] Comprehensive Metabolic Prof ilon 07-09-2024 Albumin [Mass/Vol] 4.2 g/dL Normal 3.4-4.8 [facility] Comment on above: Order Comment: Order Date: 07/09/24Order Info: [id number] - CMPOrder Info: [id number] - TSHOrder Info: 2498-4 - FE Performed By: #### L 501.9520, L500.4050, M100.2200, L100.0500, L400.0001, L101.9900, L503.6150 ####[facility] [address] [place], [address] Albumin/Globulin [Mass ratio] 1.7 {ratio} Normal 0.9-2.4 [facility] Comment on above: Order Comment: Order Date: 07/09/24Order Info: 0786-1 - CMPOrder Info: 6-3 - TSHOrder Info: [id number] - FE Performed By: #### L 501.9520, L500.4050, M100.2200, L100.0500, L400.0001, L101.9900, L503.6150 ####[facility] [address] [place], [address] ALK PHOS 71 U/L Normal 40-129 [facility] Comment on above: Order Comment: Order Date: 07/09/24Order Info: [id number] - CMPOrder Info: [id number] - TSHOrder Info: [id number] - FE Performed By: #### L 501.9520, L500.4050, M100.2200, L100.0500, L400.0001, L101.9900, L503.6150 ####[facility] [address] [place], [address] ALT [Catalytic activity/Vol] 27 U/L Normal <=46 [facility] Comment on above: Order Comment: Order Date: 07/09/24Order Info: 0786-1 - CMPOrder Info: [id number] - TSHOrder Info: [id number] - FE Performed By: #### L 501.9520, L500.4050, M100.2200, L100.0500, L400.0001, L101.9900, L503.6150 ####[facility] [address] [place], [address] AST [Catalytic activity/Vol] 24 U/L Normal <=37 [facility] Comment on above: Order Comment: Order Date: 07/09/24Order Info: 0786-1 - CMPOrder Info: [id number] - TSHOrder Info: 2498-4 - FE Performed By: #### L 501.9520, L500.4050, M100.2200, L100.0500, L400.0001, L101.9900, L503.6150 ####[facility] [address] [place], [address] Bilirubin [Mass/Vol] 0.58 mg/dL Normal 0.00-1.[address] [facility] Comment on above: Order Comment: Order Date: 07/09/24Order Info: 07- - CMPOrder Info: [id number] - TSHOrder Info: 249-4 - FE Performed By: #### L 501.9520, L500.4050, M100.2200, L100.0500, L400.0001, L101.9900, L503.6150 ####[facility] [address] [place], [address] BUN/CRE 24.6 RATIO High 10-20 [facility] Comment on above: Order Comment: Order Date: 07/09/24Order Info: 0786- - CMPOrder Info: [id number] - TSHOrder Info: 249-4 - FE Performed By: #### L 501.9520, L500.4050, M100.2200, L100.0500, L400.0001, L101.9900, L503.6150 ####[facility] [address] [place], [address] Calcium [Mass/Vol] 10.1 mg/dL Normal 7.6-11.0 [facility] Comment on above: Order Comment: Order Date: 07/09/24Order Info: [id number] - CMPOrder Info: 3 - TSHOrder Info: [id number] - FE Performed By: #### L 501.9520, L500.4050, M100.2200, L100.0500, L400.0001, L101.9900, L503.6150 ####[facility] [address] [place], [address] Chloride [Moles/Vol] 101 mmol/L Normal 98-[address] [facility] Comment on above: Order Comment: Order Date: 07/09/24Order Info: 0786-1 - CMPOrder Info: 6-3 - TSHOrder Info: [id number] - FE Performed By: #### L 501.9520, L500.4050, M100.2200, L100.0500, L400.0001, L101.9900, L503.6150 ####[facility] [address] [place], [address] CO2 [Moles/Vol] 30.0 mmol/L Normal 21.0-32.0 [facility] Comment on above: Order Comment: Order Date: 07/09/24Order Info: 0786-1 - CMPOrder Info: 3 - TSHOrder Info: [id number] - FE Performed By: #### L 501.9520, L500.4050, M100.2200, L100.0500, L400.0001, L101.9900, L503.6150 ####[facility] [address] [place], [address] Creatinine [Mass/Vol] 1.14 mg/dL Normal 0.70-1.20 [facility] Comment on above: Order Comment: Order Date: 07/09/24Order Info: 0786-1 - CMPOrder Info: 3016-3 - TSHOrder Info: 2498-4 - FE Performed By: #### L 501.9520, L500.4050, M100.2200, L100.0500, L400.0001, L101.9900, L503.6150 ####[facility] [address] [place], [address] GAP 10 Normal 5-15 [facility] Comment on above: Order Comment: Order Date: 07/09/24Order Info: 0786-1 - CMPOrder Info: [id number] - TSHOrder Info: 2494 - FE Performed By: #### L 501.9520, L500.4050, M100.2200, L100.0500, L400.0001, L101.9900, L503.6150 ####[facility] [address] [place], [address] GFR/1.73 sq M.predicted among non-blacks MDRD (S/P/Bld) [Vol rate/Area] 65 mL/min/{1.73_m2} Normal >60 [facility] Comment on above: Order Comment: Order Date: 07/09/24Order Info: 785-1 - CMPOrder Info: 3 - TSHOrder Info: [id number] - FE Result Comment: mL/m in/1.73m2 CKD-EPI Creatinine Equation (2020) Performed By: #### L 501.9520, L500.4050, M100.2200, L100.0500, L400.0001, L101.9900, L503.6150 ####[facility] [address] [place], [address] Globulin (S) [Mass/Vol] 2.5 g/dL Normal 2.2-4.2 [facility] Comment on above: Order Comment: Order Date: 07/09/24Order Info: 0786-1 - CMPOrder Info: 3 - TSHOrder Info: [id number] - FE Performed By: #### L 501.9520, L500.4050, M100.2200, L100.0500, L400.0001, L101.9900, L503.6150 ####[facility] [address] [place], [address] Glucose [Mass/Vol] 97 mg/dL Normal 70-99 [facility] Comment on above: Order Comment: Order Date: 07/09/24Order Info: 07-1 - CMPOrder Info: [id number] - TSHOrder Info: 2498-4 - FE Performed By: #### L 501.9520, L500.4050, M100.2200, L100.0500, L400.0001, L101.9900, L503.6150 ####[facility] [address] [place], [address] Potassium [Moles/Vol] 3.7 mmol/L Normal 3.3-5.1 [facility] Comment on above: Order Comment: Order Date: 07/09/24Order Info: 0786-1 - CMPOrder Info: 3016-3 - TSHOrder Info: 2498-4 - FE Performed By: #### L 501.9520, L500.4050, M100.2200, L100.0500, L400.0001, L101.9900, L503.6150 ####[facility] [address] [place], [address] Sodium [Moles/Vol] 141 mmol/L Normal 133-145 [facility] Comment on above: Order Comment: Order Date: 07/09/24Order Info: 0786-1 - CMPOrder Info: 6-3 - TSHOrder Info: 249-4 - FE Performed By: #### L 501.9520, L500.4050, M100.2200, L100.0500, L400.0001, L101.9900, L503.6150 ####[facility] [address] [place], [address] T PROT 6.7 g/dL Normal 5.9-8.4 [facility] Comment on above: Order Comment: Order Date: 07/09/24Order Info: 0786-1 - CMPOrder Info: 6-3 - TSHOrder Info: [id number] - FE Performed By: #### L 501.9520, L500.4050, M100.2200, L100.0500, L400.0001, L101.9900, L503.6150 ####[facility] [address] [place], [address] Urea nitrogen [Mass/Vol] 28 mg/dL High 4-19 [facility] Comment on above: Order Comment: Order Date: 07/09/24Order Info: 0786-1 - CMPOrder Info: 3016-3 - TSHOrder Info: 2498-4 - FE Performed By: #### L 501.9520, L500.4050, M100.2200, L100.0500, L400.0001, L101.9900, L503.6150 ####[facility] [address] [place], [address] Epithelial cells.squamous LM Ql (Urine sed)Ordered By: Cecil Kwok on 07-09-2024 Epithelial cells.squamous LM.HPF (Urine sed) [#/Area] 0 /[HPF] 0-5 [facility] Erythrocyte Sed Rateon 07-09 SED RATE 2 mm/hr Normal 0-20 [facility] Comment on above: Order Comment: Order Date: 07/09/24 Order Info: [id number] - CBC Order Info: [id number] - SED Performed By: #### L 501.9520, L500.4050, M100.2200, L100.0500, L400.0001, L101.9900, L503.6150 #### [facility] [address] [place], [address] Erythrocyte distribution wid th (RBC) [Ratio]Ordered By: Cecil Kwok on 07-09-2024 Erythrocyte distribution width (RBC) [Entitic vol] 46.8 fL High 35.1-43.9 [facility] Erythrocyte distribution wid th ratioOrdered By: Cecil Kwok on 07-09-2024 Erythrocyte distribution width (RBC) [Ratio] 14.1 % 11.6-14.6 [facility] Erythrocyte sedimentation ra teOrdered By: Cecil Kwok on 07-09-2024 ESR (Bld) [Velocity] 2 mm/h 0-[address] [facility] GFR/1.73 sq M.predicted bibi g non-blacks MDRD (S/P/Bld) [Vol rate/Area]Ordered By: Cecil Kwok on 07-09-2024 Estimated GFR (MDRD) Non-Af Amer 65 >60 [facility] Comment on above: mL/min/1.73m2 CKD-EP I Creatinine Equation (2020) Glucose Ql (U)Ordered By: Laci Kwok on 07-09-2024 Urine Glucose (UA) Normal mg/dl Normal [facility] Hematocrit Auto (Bld) [Volum e fraction]Ordered By: Cecil Kwok on 07-09-2024 Hematocrit (Bld) [Volume fraction] 45.1 % 40-54 [facility] Hemoglobin measurementOrdere d By: Cecil Kwok on 07-09-2024 Hemoglobin (Bld) [Mass/Vol] 15.1 g/dL 13.0-16.5 [facility] Ironon 07-09-2024 Iron [Mass/Vol] 54 ug/dL Low 65-175 [facility] Comment on above: Order Comment: Order Date: 07/09/24Order Info: 0786-1 - CMPOrder Info: 3016-3 - TSHOrder Info: 2498-4 - FE Performed By: #### L 501.9520, L500.4050, M100.2200, L100.0500, L400.0001, L101.9900, L503.6150 ####[facility] [address] [place], [address] Iron (Unsp spec) [Mass/Mass] Ordered By: Cecil Kwok on 07-09-2024 Iron [Mass/Vol] 54 ug/dL Low 65-175 [facility] Ketones Test strip Ql (U)Ord ered By: Cecil Kwok on 07-09-2024 Ketones Ql (U) Negative Negative [facility] Laboratory - Chemistry and C hemistry - challengeOrdered By: Cecil Kwok on 07-09-2024 AST [Catalytic activity/Vol] 24 U/L <38 [facility] MCV (mean corpuscular volume ) determinationOrdered By: Cecil Kwok on 07-09-2024 MCV (RBC) [Entitic vol] 91.1 fL 80-94 [facility] Mean corpuscular hemoglobin (MCH) determinationOrdered By: Cecil Kwok on 07-09-2024 MCH (RBC) [Entitic mass] 30.5 pg 27.0-32.0 [facility] Mean corpuscular hemoglobin concentration (MCHC) determinationOrdered By: Cecil Kwok on 07-09-2024 MCHC (RBC) [Mass/Vol] 33.5 g/dL 32-36 [facility] Mean platelet volume determi nationOrdered By: Cecil Kwok on 07-09-2024 Platelet mean volume (Bld) [Entitic vol] 11.7 fL 6.2-12.0 [facility] Microscopic analysis of urin e for red blood cells (RBC)Ordered By: Cecil Kwok on 07-09-2024 Urine RBC 0 SEEN /hpf 0-5 [facility] Mucus LM Ql (Urine sed)Order ed By: Cecil Kwok on 07-09-2024 Mucus Ql (Urine sed) RARE /hpf [facility] Nitrite Test strip Ql (U)Ord ered By: Cecil Kwok on 07-09-2024 Nitrite Ql (U) Negative Negative [facility] Platelet countOrdered By: Laci Kwok on 07-09-2024 Platelets (Bld) [#/Vol] 171 10*3/uL 150-450 [facility] Potassium (Unsp spec) [Mass/ Vol]Ordered By: Cecil Kwok on 07-09-2024 Potassium [Moles/Vol] 3.7 mmol/L 3.3-5.1 [facility] Protein Test strip Ql (U)Ord ered By: Cecil Kwok on 07-09-2024 Protein Ql (U) Negative Negative [facility] RBC Auto (Bld) [#/Vol]Ordere d By: Cecil Kwok on 07-09-2024 RBC (Bld) [#/Vol] 4.95 10*6/uL 4.6-6.2 [facility] Serum creatinine measurement (mass/volume)Ordered By: Cecil Kwok on 07-09-2024 Creatinine [Mass/Vol] 1.14 mg/dL 0.70-1.20 [facility] Serum globulin measurementOr dered By: Cecil Kwok on 07-09-2024 Globulin (S) [Mass/Vol] 2.5 g/dL 2.2-4.2 [facility] Serum glucose measurement (m ass/volume)Ordered By: Cecil Kwok on 07-09-2024 Glucose [Mass/Vol] 97 mg/dL 70-99 [facility] Serum or plasma alanine bethea otransferase (ALT) measurementOrdered By: Cecil Kwok on 07-09-2024 ALT [Catalytic activity/Vol] 27 U/L <47 [facility] Serum or plasma albumin checo urement (mass/volume)Ordered By: Cecil Kwok on 07-09-2024 Albumin [Mass/Vol] 4.2 g/dL 3.4-4.8 [facility] Serum or plasma albumin/glob ulin mass ratioOrdered By: Cecil Kwok on 07-09-2024 Albumin/Globulin [Mass ratio] 1.7 {ratio} 0.9-2.4 [facility] Serum or plasma alkaline alejandra sphatase measurementOrdered By: Cecil Kwok on 07-09-2024 ALP [Catalytic activity/Vol] 71 U/L 40-129 [facility] Serum or plasma calcium checo urement (mass/volume)Ordered By: Cecil Kwok on 07-09-2024 Calcium [Mass/Vol] 10.1 mg/dL 7.6-11.0 [facility] Serum or plasma urea nitroge n measurement (mass/volume)Ordered By: Cecil Kwok on 07-09-2024 Urea nitrogen [Mass/Vol] 28 mg/dL High 4-19 [facility] Sodium levelOrdered By: Evelyn Kwok on 07-09-2024 Sodium [Moles/Vol] 141 mmol/L 133-145 [facility] TSH DL <= 0.005 mIU/L QnOrde red By: Cecil Kwok on 07-09-2024 Thyroid Stimulating Hormone (TSH) 1.580 uIU/mL 0.300-4.200 [facility] Thyroid Stim Hormone (TSH)on 07-09-2024 TSH 1.580 uIU/mL Normal 0.300-4.200 [facility] Comment on above: Order Comment: Order Date: 07/09/24Order Info: 0786-1 - CMPOrder Info: [id number] - TSHOrder Info: 2498-4 - FE Performed By: #### L 501.9520, L500.4050, M100.2200, L100.0500, L400.0001, L101.9900, L503.6150 ####[facility] [address] [place], [address] Total proteinOrdered By: Letty wadeamieher Kwok on 07-09-2024 Protein [Mass/Vol] 6.7 g/dL 5.9-8.4 [facility] Urinalysis, Completeon 07-09 BACTERIA 1+ /hpf Normal None Seen [facility] Comment on above: Order Comment: Order Date: 07/09/24Order Info: [id number] - UACCOLLECTOR TO SPECIFY Performed By: #### L 501.9520, L500.4050, M100.2200, L100.0500, L400.0001, L101.9900, L503.6150 ####[facility] [address] [place], [address] WBC 0-5 SEEN Normal 0-5 [facility] Comment on above: Order Comment: Order Date: 07/09/24Order Info: [id number] - UACCOLLECTOR TO SPECIFY Performed By: #### L 501.9520, L500.4050, M100.2200, L100.0500, L400.0001, L101.9900, L503.6150 ####[facility] [address] [place], [address] EPI,SQUAMOUS 0-5 SEEN Normal 0-5 [facility] Comment on above: Order Comment: Order Date: 07/09/24Order Info: [id number] - UACCOLLECTOR TO SPECIFY Performed By: #### L 501.9520, L500.4050, M100.2200, L100.0500, L400.0001, L101.9900, L503.6150 ####[facility] [address] [place], [address] Mucus Ql (Urine sed) RARE Normal [facility] Comment on above: Order Comment: Order Date: 07/09/24Order Info: [id number] - UACCOLLECTOR TO SPECIFY Performed By: #### L 501.9520, L500.4050, M100.2200, L100.0500, L400.0001, L101.9900, L503.6150 ####[facility] [address] [place], [address] AMORPHOUS 4+ Normal [facility] Comment on above: Order Comment: Order Date: 07/09/24Order Info: [id number] - UACCOLLECTOR TO SPECIFY Performed By: #### L 501.9520, L500.4050, M100.2200, L100.0500, L400.0001, L101.9900, L503.6150 ####[facility] [address] [place], [address] RBC 0 SEEN Normal 0-5 [facility] Comment on above: Order Comment: Order Date: 07/09/24Order Info: [id number] - UACCOLLECTOR TO SPECIFY Performed By: #### L 501.9520, L500.4050, M100.2200, L100.0500, L400.0001, L101.9900, L503.6150 ####[facility] [address] [place], [address] Urine blood detectionOrdered By: Cecil Kwok on 07-09-2024 Urine Occult Blood Negative Negative [facility] Urine clarityOrdered By: Letty Kwok on 07-09-2024 Clarity (U) Cloudy Clear [facility] Urine color determinationOrd ered By: Cecil Kwok on 07-09-2024 Color (U) STRAW Yellow [facility] Urine cultureOrdered By: Letty Kwok on 07-09-2024 Bacteria identified Cx Nom (U) Culture exhibits no growth. [facility] Urine leukocyte esterase det ection by dipstickOrdered By: Cecil Kwok on 07-09-2024 Leukocyte esterase Test strip Ql (U) Negative Negative [facility] Urine pHOrdered By: Elias Kwok on 07-09-2024 pH (U) 7.0 [pH] 5.0 - 8.0 [facility] Urine sediment bacteria coun t by microscopy (number/high power field)Ordered By: Cecil Kwok on 07-09-2024 Bacteria LM.HPF (Urine sed) [#/Area] 1 /[HPF] None Seen [facility] Urine specific gravity measu rementOrdered By: Cecil Kwok on 07-09-2024 Specific gravity (U) [Rel density] 1.015 1.002-1.030 [facility] Urobilinogen Ql (U)Ordered B y: Cecil Kwok on 07-09-2024 Urine Urobilinogen Normal mg/dl Normal [facility] Vitamin B12on 07-09-2024 Cobalamin (Vitamin B12) [Mass/Vol] 643 pg/mL Normal 180-914 [facility] Comment on above: Order Comment: Order Date: 07/09/24 Order Info: [id number] - CMP Order Info: [id number] - TSH Order Info: [id number] - FE Performed By: #### L 503.0106, L506.1001 #### [facility] [address] [place] [address], [address] Vitamin B12 ser/plasOrdered By: Cecil Kwok on 07-09-2024 Cobalamin (Vitamin B12) [Mass/Vol] 643 pg/mL 180-914 [facility] Vitamin D, 25-hydroxyOrdered By: Cecil Kwok on 07-09-2024 Vitamin D 25-Hydroxy 40.0 ng/mL 30-[address] [facility] Comment on above: Vitamin D StatusDefi ciency: <20 ng/mL (50nmol/L)Insufficiency: 20-30 ng/mL (50-75 nmol/L)Sufficiency: 30-100 ng/mL (75-250 nmol/L)Toxicity: >100 ng/mL (>250 nmol/L) Vitamin D,25 Hydroxyon 07-09 Vitamin D 25-OH 40.0 ng/mL Normal 30-100 [facility] Comment on above: Order Comment: Order Date: 07/09/24 Order Info: [id number] - CMP Order Info: [id number] - TSH Order Info: [id number] - FE Result Comment: Ebony min D Status Deficiency: <20 ng/mL (50nmol/L) Insufficiency: 20-30 ng/mL (50-75 nmol/L) Sufficiency: 30-100 ng/mL (75-250 nmol/L) Toxicity: >100 ng/mL (>250 nmol/L) Performed By: #### L 503.0106, L506.1001 #### [facility] [address] [place], [place], [address] White blood cell (WBC) count Ordered By: Cecil Kwok on 07-09-2024 WBC (Bld) [#/Vol] 7.8 10*3/uL 4.4-11.0 [facility] White blood cell countOrdere d By: Cecil Kwok on 07-09-2024 Urine WBC 0-5 SEEN /hpf 0-5 [facility] Anion gap in Serum or Plasma Ordered By: Cecil Kwok on 06-10-2024 Anion gap [Moles/Vol] 13 mmol/L 5-15 [facility] BUN/creatinine ratioOrdered By: Cecil Kwok on 06-10-2024 Urea nitrogen/Creatinine [Mass ratio] 26.1 mg/mg High 10-20 [facility] Basic Metabolic Profile (BMP )on 06-10-2024 BUN/CRE 26.1 RATIO High - [facility] Comment on above: Order Comment: Order Date: 06/02/24 Order Info: [id number] - BMP Performed By: #### L 500.2500 #### [facility] [address] [place], [place], [id number] Calcium [Mass/Vol] 10.6 mg/dL Normal 7.6-11.0 [facility] Comment on above: Order Comment: Order Date: 06/02/24 Order Info: 0667-1 - BMP Performed By: #### L 500.2500 #### [facility] [address] [place], [address] Chloride [Moles/Vol] 100 mmol/L Normal 98-[address] [facility] Comment on above: Order Comment: Order Date: 06/02/24 Order Info: 0667- - BMP Performed By: #### L 500.2500 #### [facility] [address] [place], [address] CO2 [Moles/Vol] 29.3 mmol/L Normal 21.0-32.0 [facility] Comment on above: Order Comment: Order Date: 06/02/24 Order Info: 0667- - BMP Performed By: #### L 500.2500 #### [facility] [address] [place], [address] Creatinine [Mass/Vol] 1.29 mg/dL High 0.70-1.20 [facility] Comment on above: Order Comment: Order Date: 06/02/24 Order Info: 0667- - BMP Performed By: #### L 500.2500 #### [facility] [address] [place], [address] GAP 13 Normal 5-15 [facility] Comment on above: Order Comment: Order Date: 06/02/24 Order Info: 0667- - BMP Performed By: #### L 500.2500 #### [facility] [address] [place], [address] GFR/1.73 sq M.predicted among non-blacks MDRD (S/P/Bld) [Vol rate/Area] 56 mL/min/{1.73_m2} Low >60 [facility] Comment on above: Order Comment: Order Date: 06/02/24 Order Info: 0667-1 - BMP Result Comment: mL/m in/1.73m2 CKD-EPI Creatinine Equation (2020) Performed By: #### L 500.2500 #### [facility] [address] [place], [address] Glucose [Mass/Vol] 104 mg/dL High 70-99 [facility] Comment on above: Order Comment: Order Date: 06/02/24 Order Info: 0667- - BMP Performed By: #### L 500.2500 #### [facility] [address] [place], [address] Potassium [Moles/Vol] 4.1 mmol/L Normal 3.3-5.1 [facility] Comment on above: Order Comment: Order Date: 06/02/24 Order Info: 0667- - BMP Performed By: #### L 500.2500 #### [facility] [address] [place], [address] Sodium [Moles/Vol] 142 mmol/L Normal 133-145 [facility] Comment on above: Order Comment: Order Date: 06/02/24 Order Info: 0667- - BMP Performed By: #### L 500.2500 #### [facility] [address] [place], [address] Urea nitrogen [Mass/Vol] 34 mg/dL High 4-19 [facility] Comment on above: Order Comment: Order Date: 06/02/24 Order Info: 0667- - BMP Performed By: #### L 500.2500 #### [facility] [address] [place], [address] Carbon dioxide, total [Moles /volume] in Central venous bloodOrdered By: Cecil Kwok on 06-10-2024 CO2 [Moles/Vol] 29.3 mmol/L 21.0-32.0 [facility] Chloride assayOrdered By: Laci Kwok on 06-10-2024 Chloride [Moles/Vol] 100 mmol/L 98-[address] [facility] GFR/1.73 sq M.predicted bibi g non-blacks MDRD (S/P/Bld) [Vol rate/Area]Ordered By: eCcil Kwok on 06-10-2024 Estimated GFR (MDRD) Non-Af Amer 56 Low >60 [facility] Comment on above: mL/min/1.73m2 CKD-EP I Creatinine Equation (2020) MR/Yan 06-10-2024 MR/BMS.JOSTIN [facility] Vascular Surgery [address] [place] [address] OFFICE VISIT Date of Service: 06/10/24 MR#: [id number] Acct: [id number] Name: SUNDAYLILI Rep #: [id number] : 1940 Provider: TYLOR Prado Age/Sex: 83/M Location: [facility] Status: Signed Intake Vital Signs 04/13/22 16:00 06/10/24 09:06 Height 5 ft 9.25 in BP 131/76 H Blood Pressure Location Lt brachial Position Sitting Respiration 16 Pulse 69 Pulse Source Monitor Temp 97.8 F Temp Source Temporal Pulse Oximetry (%) 96 Oxygen Delivery Method room air Intake Visit Reasons: CKD Stage 3, R leg swelling Chief Complaint: establish care Is patient in pain?: No Allergies No Known Allergies Allergy (Verified 06/10/24 09:07) Medications ???Medication ???Instructions ???Recorded ???Confirmed ???Type oxybutynin chloride 10 mg 10 mg PO DAILY 02/03/16 06/10/24 H istory tablet,extended release 24 hr simvastatin 40 mg tablet 40 mg PO QHS 02/03/16 06/10/24 His tory aspirin 325 mg tablet 81 mg PO DAILY@0800 06/10/2406/10 History calcitriol 0.25 mcg capsule 0.25 mcg PO QDAY 06/10/24 06/10/24 History cholecalciferol (vitamin D3) 50 50 mcg PO QDAY 06/10/24 06/10/24 H istory mcg (2,000 unit) capsule ezetimibe 10 mg tablet 10 mg PO QDAY 06/10/24 06/10/24 Hi story ferrous fumarate 325 mg (106 mg 325 mg PO QDAY 06/10/24 06/10/24 H istory iron) tablet furosemide 20 mg tablet (Lasix) 20 mg PO QAM 06/10/24 06/10/24 His tory indapamide 2.5 mg tablet 2.5 mg PO QAM 06/10/24 06/10/24 Hi story potassium chloride 10 mEq 10 meq PO QDAY 06/10/24 06/10/24 H istory capsule,extended release thiamine HCl (vitamin B1) 100 mg 100 mg PO QDAY 06/10/24 06/10/24 H istory capsule Have you fallen in the past year?: Yes PFSH Medical History COVID-19 Contact with and (suspected) exposure to other viral communicable diseases Right leg swelling Leg swelling Hyperlipidemia Hemorrhoids HTN (hypertension) Osteoarthritis Chronic back pain Surgical History S/P colonoscopy S/P right inguinal hernia repair Status post right hip replacement S/p total knee replacement, bilateral Family History Mother CAD (coronary artery disease) Father Cancer spine Social History Smoking Status: Never smoker HPI HPI HPI: LILI SUNDAY, is a 83 M who presents to the office today for evaluation of significant RLE edema as referred by his PCP. He has had RLE for over 30 years now. He denies any history of DVT, lymph node dissection, abdominopelvic surgery/radiation, severe spine disease/scoliosis, travel to tropical locations. He reports the swelling has been pretty stable, no significant worsening or improvement over this time. He recently started to use measured compression stockings and this has seemed to help a bit so far. He is admittedly not good about elevating his legs. He has never tried lymphedema pumps. Over the last few weeks, he developed fluid-filled blisters which then evolved to superficial wounds. He has never had this happen before, denies any prior wounds. Right now, he just has two small superficial ulcerations on his anterolateral shields; they report these seem to be healing okay so far. No other active weeping or skin breakdown. ROS General General: No weight change, appetite, fatigue, colon cancer, breast cancer or weakness HEENT HEENT: No difficulty swallowing, eye injury, eye surgery, swollen glands or hoarseness Endo Endocrine: No thyroid disease, diabetes mellitus, thyroid cancer, Hair loss, heat intolerance or cold intolerance Skin Skin: No rash or changing moles Musc Musculoskeletal: No back problems, arthritis, rheumatoid arthritis, gout or joint pain Cardio Cardiovascular: Yes high blood pressure; No murmur, pacemaker, heart disease, atrial fibrillation, heart attack, heart stent, palpitations, shortness of breath with exertion or chest pain Psych Psychiatric: No depression, anxiety or hearing voices Resp Respiratory: No shortness of breath, No sleep apnea, No cough, No COPD, No asthma, No emphysema and No wheezing Gastro Gastrointestinal: No abdominal pain, No nausea or vomiting, No diarrhea, No constipation, No blood in stool, No acid reflux, No hemorrhoids, No ulcers, No gallbladder problem and No black,tarry stools Chang Hematologic: Yes blood thinners, No blood disorders, No bleeding, No anemia and No blood clots Neuro Neurologic: No system reviewed and no additional complaints, except as documented, No as per HPI, No abnormal gait, Yes abnormal (more content not included)... Normal [facility] Potassium (Unsp spec) [Mass/ Vol]Ordered By: Cecil Kwok on 06-10-2024 Potassium [Moles/Vol] 4.1 mmol/L 3.3-5.1 [facility] Serum creatinine measurement (mass/volume)Ordered By: Cecil Kwok on 06-10-2024 Creatinine [Mass/Vol] 1.29 mg/dL High 0.70-1.20 [facility] Serum glucose measurement (m ass/volume)Ordered By: Cecil Kwok on 06-10-2024 Glucose [Mass/Vol] 104 mg/dL High 70-99 [facility] Serum or plasma calcium checo urement (mass/volume)Ordered By: Cecil Kwok on 06-10-2024 Calcium [Mass/Vol] 10.6 mg/dL 7.6-11.0 [facility] Serum or plasma urea nitroge n measurement (mass/volume)Ordered By: Cecil Kwok on 06-10-2024 Urea nitrogen [Mass/Vol] 34 mg/dL High 4-19 [facility] Sodium levelOrdered By: Evelyn Kwok on 06-10-2024 Sodium [Moles/Vol] 142 mmol/L 133-145 [facility] Comprehensive Metabolic Prof ilon 05-28-2024 Albumin [Mass/Vol] 4.3 g/dL Normal 3.4-4.8 [facility] Comment on above: Performed By: #### L 500.4100, L503.6150, L500.4050 ####[facility] [address] [place], [address] Albumin/Globulin [Mass ratio] 2.0 {ratio} Normal 0.9-2.4 [facility] Comment on above: Performed By: #### L 500.4100, L503.6150, L500.4050 ####[facility] [address] [place], [address] ALK PHOS 78 U/L Normal 40-129 [facility] Comment on above: Performed By: #### L 500.4100, L503.6150, L500.4050 ####[facility] [address] [place], [address] ALT [Catalytic activity/Vol] 26 U/L Normal <=46 [facility] Comment on above: Performed By: #### L 500.4100, L503.6150, L500.4050 ####[facility] [address] [place], [address] Anion gap [Moles/Vol] 10 mmol/L Normal 5-15 [facility] Comment on above: Performed By: #### L 500.4100, L503.6150, L500.4050 ####[facility] [address] [place], [address] AST [Catalytic activity/Vol] 27 U/L Normal <=37 [facility] Comment on above: Performed By: #### L 500.4100, L503.6150, L500.4050 ####[facility] [address] [place], [address] Bilirubin [Mass/Vol] 0.48 mg/dL Normal 0.00-1.[address] [facility] Comment on above: Performed By: #### L 500.4100, L503.6150, L500.4050 ####[facility] [address] [place], [address] BUN/CRE 20.7 RATIO High 10-20 [facility] Comment on above: Performed By: #### L 500.4100, L503.6150, L500.4050 ####[facility] [address] [place], [address] Calcium [Mass/Vol] 10.5 mg/dL Normal 7.6-11.0 [facility] Comment on above: Performed By: #### L 500.4100, L503.6150, L500.4050 ####[facility] [address] [place], [address] Chloride [Moles/Vol] 104 mmol/L Normal 96-[address] [facility] Comment on above: Performed By: #### L 500.4100, L503.6150, L500.4050 ####[facility] [address] [place], [address] CO2 [Moles/Vol] 29.8 mmol/L High 22.0-29.0 [facility] Comment on above: Performed By: #### L 500.4100, L503.6150, L500.4050 ####[facility] [address] [place], [address] Creatinine [Mass/Vol] 1.1 mg/dL Normal 0.8-1.3 [facility] Comment on above: Performed By: #### L 500.4100, L503.6150, L500.4050 ####[facility] [address] [place], [address] GFR/1.73 sq M.predicted among non-blacks MDRD (S/P/Bld) [Vol rate/Area] 66 mL/min/{1.73_m2} Normal >60 [facility] Comment on above: Result Comment: mL/m in/1.73m2 CKD-EPI Creatinine Equation (2020) Performed By: #### L 500.4100, L503.6150, L500.4050 ####[facility] [address] [place], [address] Globulin (S) [Mass/Vol] 2.2 g/dL Normal 2.2-4.2 [facility] Comment on above: Performed By: #### L 500.4100, L503.6150, L500.4050 ####[facility] [address] [place], [address] Glucose [Mass/Vol] 100 mg/dL High 70-99 [facility] Comment on above: Performed By: #### L 500.4100, L503.6150, L500.4050 ####[facility] [address] [place], [address] Potassium [Moles/Vol] 4.4 mmol/L Normal 3.3-5.1 [facility] Comment on above: Performed By: #### L 500.4100, L503.6150, L500.4050 ####[facility] [address] [place], [address] Sodium [Moles/Vol] 143 mmol/L Normal 133-145 [facility] Comment on above: Performed By: #### L 500.4100, L503.6150, L500.4050 ####[facility] [address] [place], [address] T PROT 6.5 g/dL Normal 5.9-8.4 [facility] Comment on above: Performed By: #### L 500.4100, L503.6150, L500.4050 ####[facility] [address] [place], [address] Urea nitrogen [Mass/Vol] 23 mg/dL High 4-19 [facility] Comment on above: Performed By: #### L 500.4100, L503.6150, L500.4050 ####[facility] [address] [place], [address] Ironon 05-28-2024 Iron [Mass/Vol] 54 ug/dL Low 65-175 [facility] Comment on above: Performed By: #### L 500.4100, L503.6150, L500.4050 ####[facility] [address] [place], [address] Lipid Profileon 05-28-2024 CHOL:HDL 2.08 Normal [facility] Comment on above: Performed By: #### L 500.4100 #### [facility] [address] [place], [address] Cholesterol [Mass/Vol] 125 mg/dL Normal <=200 [facility] Comment on above: Result Comment: Chol esterol level, Desirable <200 mg/dL Borderline high cholesterol 200-239 mg/dL High cholesterol >=240 mg/dL Recommendations of the NCEP Adult Treatment Panel for the following risk-cutoff thresholds for the [place] population. Performed By: #### L 500.4100 #### [facility] [address] [place], [address] Cholesterol in HDL [Mass/Vol] 60 mg/dL Normal [facility] Comment on above: Result Comment: [place] Cholesterol Education Program (NCEP) guidelines: <40 mg/dL: Low HDL-cholesterol (major risk factor for CHD) >= 60 mg/dL: High HDL-cholesterol (negative risk factor for CHD) HDL-cholesterol is affected by a number of factors, e.g. smoking, exercise, hormones, sex and age. Performed By: #### L 500.4100 #### [facility] [address] [place], [address] Cholesterol in LDL [Mass/Vol] 51 mg/dL Normal [facility] Comment on above: Result Comment: Bord pyvure=785-455 mg/dL Higher Vtgp=509 mg/dL or greater Performed By: #### L 500.4100 #### [facility] [address] [place], [address] Cholesterol in VLDL [Mass/Vol] 14 mg/dL Normal 5-40 [facility] Comment on above: Performed By: #### L 500.4100 #### [facility] [address] [place], [address] Triglyceride [Mass/Vol] 69 mg/dL Normal [facility] Comment on above: Result Comment: The drugs N-Acetylcysteine and Metamizole may falsely depress this assay. Normal range: <150 mg/dL Borderline High: 150-199 mg/dL High: 200-499 mg/dL Very High: >500 mg/dL Performed By: #### L 500.4100 #### [facility] [address] [place], [address] CHOL Normal <=200 [facility] Comment on above: Result Comment: Chol esterol level, Desirable <200 mg/dL Borderline high cholesterol 200-239 mg/dL High cholesterol >=240 mg/dL Recommendations of the NCEP Adult Treatment Panel for the following risk-cutoff thresholds for the [place] population. Performed By: #### L 500.4100, L503.6150, L500.4050 ####[facility] [address] [place], [address] HDL Normal [facility] Comment on above: Result Comment: The drugs N-Acetylcysteine and Metamizole may falsely depress this assay. National Cholesterol Education Program (NCEP) guidelines: <40 mg/dL: Low HDL-cholesterol (major risk factor for CHD) >= 60 mg/dL: High HDL-cholesterol (negative risk factor for CHD) HDL-cholesterol is affected by a number of factors, e.g. smoking, exercise, hormones, sex and age. Performed By: #### L 500.4100, L503.6150, L500.4050 ####[facility] [address] [place], [address] TRIG Normal [facility] Comment on above: Result Comment: The drugs N-Acetylcysteine and Metamizole may falsely depress this assay. Normal range: <150 mg/dL Borderline High: 150-199 mg/dL High: 200-499 mg/dL Very High: >500 mg/dL Performed By: #### L 500.4100, L503.6150, L500.4050 ####[facility] [address] [place], [address] VLDL Normal 5-40 [facility] Comment on above: Performed By: #### L 500.4100, L503.6150, L500.4050 ####[facility] [address] [place], [address] PTHINon 05-28-2024 PTH 77 pg/mL High 11- [facility] Comment on above: Order Comment: Order Date: 02/20/24Order Info: 0565-1 - PTHIN Performed By: #### L 100.0500, L509.1000 ####[facility] [address] [place], [address] BUN/creatinine ratioOrdered By: Cecil Kwok on 05-27-2024 Urea nitrogen/Creatinine [Mass ratio] 20.7 mg/mg High - [facility] Bilirubin, totalOrdered By: Cecil Kwok on 05-27-2024 Bilirubin [Mass/Vol] 0.48 mg/dL 0.00-1.[address] [facility] CBC-Complete Blood Cnt No Di ffon 05-27-2024 Erythrocyte distribution width (RBC) [Ratio] 13.6 % Normal 11.6-14.6 [facility] Comment on above: Order Comment: Order Date: 02/20/24Order Info: 51851-9 - CBC Performed By: #### L 100.0500, L509.1000 ####[facility] [address] [place], [address] Hematocrit (Bld) [Volume fraction] 44.8 % Normal 40-54 [facility] Comment on above: Order Comment: Order Date: 02/20/24Order Info: - CBC Performed By: #### L 100.0500, L509.1000 ####[facility] [address] [place], [address] Hemoglobin (Bld) [Mass/Vol] 14.7 g/dL Normal 13.0-16.5 [facility] Comment on above: Order Comment: Order Date: 02/20/24Order Info: - CBC Performed By: #### L 100.0500, L509.1000 ####[facility] [address] [place], [address] MCH (RBC) [Entitic mass] 30.7 pg Normal 27.0-32.0 [facility] Comment on above: Order Comment: Order Date: 02/20/24Order Info: [id number] - CBC Performed By: #### L 100.0500, L509.1000 ####[facility] [address] [place], [address] MCHC (RBC) [Mass/Vol] 32.8 g/dL Normal 32-36 [facility] Comment on above: Order Comment: Order Date: 02/20/24Order Info: [id number] - CBC Performed By: #### L 100.0500, L509.1000 ####[facility] [address] [place], [address] MCV (RBC) [Entitic vol] 93.5 fL Normal 80-94 [facility] Comment on above: Order Comment: Order Date: 02/20/24Order Info: [id number] - CBC Performed By: #### L 100.0500, L509.1000 ####[facility] [address] [place], [address] Platelet mean volume (Bld) [Entitic vol] 11.7 fL Normal 6.2-12.0 [facility] Comment on above: Order Comment: Order Date: 02/20/24Order Info: [id number] - CBC Performed By: #### L 100.0500, L509.1000 ####[facility] [address] [place], [address] Platelets (Bld) [#/Vol] 187 10*3/uL Normal 150-450 [facility] Comment on above: Order Comment: Order Date: 02/20/24Order Info: [id number] - CBC Performed By: #### L 100.0500, L509.1000 ####[facility] [address] [place], [address] RBC (Bld) [#/Vol] 4.79 10*6/uL Normal 4.6-6.2 [facility] Comment on above: Order Comment: Order Date: 02/20/24Order Info: [id number] - CBC Performed By: #### L 100.0500, L509.1000 ####[facility] [address] [place], [address] RDW SD 46.5 fl High 35.1-43.9 [facility] Comment on above: Order Comment: Order Date: 02/20/24Order Info: [id number] - CBC Performed By: #### L 100.0500, L509.1000 ####[facility] [address] [place], [address] WBC (Bld) [#/Vol] 6.2 10*3/uL Normal 4.4-11.0 [facility] Comment on above: Order Comment: Order Date: 02/20/24Order Info: [id number] - CBC Performed By: #### L 100.0500, L509.1000 ####[facility] [address] [place], [address] Calculated very low density lipoprotein (VLDL) cholesterol measurementOrdered By: Cecil Kwok on 05-27-2024 VLDL Cholesterol 14 mg/dL 5-40 [facility] Carbon dioxide measurementOr dered By: Cecil Kwok on 05-27-2024 CO2 [Moles/Vol] 29.8 mmol/L High 22.0-29.0 [facility] Chloride measurementOrdered By: Cecil Kwok on 05-27-2024 Chloride [Moles/Vol] 104 mmol/L 96-[address] [facility] Creatinine [Moles/Vol]Ordere d By: Cecil Kwok on 05-27-2024 Creatinine [Mass/Vol] 1.1 mg/dL 0.8-1.3 [facility] Erythrocyte distribution wid th ratioOrdered By: Cecil Kwok on 05-27-2024 Erythrocyte distribution width (RBC) [Ratio] 13.6 % 11.6-14.6 [facility] Erythrocyte distribution wid th standard deviationOrdered By: Cecil Kwok on 05-27-2024 Erythrocyte distribution width (RBC) [Entitic vol] 46.5 fL High 35.1-43.9 [facility] GFR/1.73 sq M.predicted bibi g non-blacks MDRD (S/P/Bld) [Vol rate/Area]Ordered By: Cecil Kwok on 05-27-2024 Estimated GFR (MDRD) Non-Af Amer 66 >60 [facility] Comment on above: mL/min/1.73m2 CKD-EP I Creatinine Equation (2020) Hematocrit Auto (Bld) [Volum e fraction]Ordered By: Cecil Kwok on 05-27-2024 Hematocrit (Bld) [Volume fraction] 44.8 % 40-54 [facility] Hemoglobin measurementOrdere d By: Cecil Kwok on 05-27-2024 Hemoglobin (Bld) [Mass/Vol] 14.7 g/dL 13.0-16.5 [facility] Intact parathyroid hormone ( iPTH) measurementOrdered By: Cecil Kwok on 05-27-2024 Parathyroid Hormone (Intact) 77 pg/mL High 11-61 [facility] Iron (Unsp spec) [Mass/Mass] Ordered By: Cecil Kwok on 05-27-2024 Iron [Mass/Vol] 54 ug/dL Low 65-175 [facility] L506.1001on 05-27-2024 Vitamin D 25-OH 35.7 ng/mL Normal 30-100 [facility] Comment on above: Order Comment: Order Date: 02/20/24 Order Info: [id number] - CMP Order Info: [id number] - LIPID Order Info: [id number] - FE Result Comment: Ebony min D Status Deficiency: <20 ng/mL (50nmol/L) Insufficiency: 20-30 ng/mL (50-75 nmol/L) Sufficiency: 30-100 ng/mL (75-250 nmol/L) Toxicity: >100 ng/mL (>250 nmol/L) Performed By: #### L 506.1001 #### [facility] [address] [place] [address], [address] LDL calc ser/plasOrdered By: Cecil Kwok on 05-27-2024 LDL Cholesterol, Calculated 51 mg/dL [facility] Comment on above: Jiadkglaww=798-232 m g/dL & Higher Sjni=685 mg/dL or greater Laboratory - Chemistry and C hemistry - challengeOrdered By: Cecil Kwok on 05-27-2024 AST [Catalytic activity/Vol] 27 U/L <38 [facility] MCV (mean corpuscular volume ) determinationOrdered By: Cecil Kwok on 05-27-2024 MCV (RBC) [Entitic vol] 93.5 fL 80-94 [facility] Mean corpuscular hemoglobin (MCH) determinationOrdered By: Cecil Kwok on 05-27-2024 MCH (RBC) [Entitic mass] 30.7 pg 27.0-32.0 [facility] Mean corpuscular hemoglobin concentration (MCHC) determinationOrdered By: Cecil Kwok on 05-27-2024 MCHC (RBC) [Mass/Vol] 32.8 g/dL 32-36 [facility] Mean platelet volume determi nationOrdered By: Cecil Kwok on 05-27-2024 Platelet mean volume (Bld) [Entitic vol] 11.7 fL 6.2-12.0 [facility] No Panel InformationOrdered By: Cecil Kwok on 05-27-2024 Vitamin D 25-Hydroxy 35.7 ng/mL 30-[address] [facility] Comment on above: Vitamin D StatusDefi ciency: <20 ng/mL (50nmol/L)Insufficiency: 20-30 ng/mL (50-75 nmol/L)Sufficiency: 30-100 ng/mL (75-250 nmol/L)Toxicity: >100 ng/mL (>250 nmol/L) Platelet countOrdered By: Laci Kwok on 05-27-2024 Platelets (Bld) [#/Vol] 187 10*3/uL 150-450 [facility] RBC Auto (Bld) [#/Vol]Ordere d By: Cecil Kwok on 05-27-2024 RBC (Bld) [#/Vol] 4.79 10*6/uL 4.6-6.2 [facility] Screening total cholesterol/ high density lipoprotein (HDL) cholesterol ratioOrdered By: Cecil Kwok on 05-27-2024 Cholesterol.total/Choles terol in HDL [Mass ratio] 2.08 {ratio} [facility] Serum globulin measurementOr dered By: Cecil Kwok on 05-27-2024 Globulin (S) [Mass/Vol] 2.2 g/dL 2.2-4.2 [facility] Serum glucose measurement (m ass/volume)Ordered By: Cecil Kwok on 05-27-2024 Glucose [Mass/Vol] 100 mg/dL High 70-99 [facility] Serum or plasma alanine bethea otransferase (ALT) measurementOrdered By: Cecil Kwok on 05-27-2024 ALT [Catalytic activity/Vol] 26 U/L <47 [facility] Serum or plasma albumin checo urement (mass/volume)Ordered By: Cecil Kwok on 05-27-2024 Albumin [Mass/Vol] 4.3 g/dL 3.4-4.8 [facility] Serum or plasma albumin/glob ulin mass ratioOrdered By: Cecil Kwok on 05-27-2024 Albumin/Globulin [Mass ratio] 2.0 {ratio} 0.9-2.4 [facility] Serum or plasma alkaline alejandra sphatase measurementOrdered By: Cecil Kwok on 05-27-2024 ALP [Catalytic activity/Vol] 78 U/L 40-129 [facility] Serum or plasma anion gap de termination (moles/volume)Ordered By: Cecil Kwok on 05-27-2024 Anion gap [Moles/Vol] 10 mmol/L 5-15 [facility] Serum or plasma calcium checo urement (mass/volume)Ordered By: Cecil Kwok on 05-27-2024 Calcium [Mass/Vol] 10.5 mg/dL 7.6-11.0 [facility] Serum or plasma cholesterol in HDL measurement (mass/volume)Ordered By: Cecil Kwok on 05-27-2024 Cholesterol in HDL [Mass/Vol] 60 mg/dL >40 [facility] Comment on above: National Cholesterol Education Program (NCEP) guidelines:<40 mg/dL: Low HDL-cholesterol (major risk factor for CHD)>= 60 mg/dL: High HDL-cholesterol (negative risk factor for CHD)HDL-cholesterol is affected by a number of factors, e.g. smoking, exercise, hormones, sex and age. Serum or plasma cholesterol measurement (mass/volume)Ordered By: Cecil Kwok on 05-27-2024 Cholesterol [Mass/Vol] 125 mg/dL <201 [facility] Comment on above: Cholesterol level, D esirable <200 mg/dLBorderline high cholesterol 200-239 mg/dLHigh cholesterol >=240 mg/dLRecommendations of the NCEP Adult Treatment Panel for the following risk-cutoff thresholds for the [place] population. Serum or plasma potassium me asurementOrdered By: Cecil Kwok on 05-27-2024 Potassium [Moles/Vol] 4.4 mmol/L 3.3-5.1 [facility] Serum or plasma sodium measu rement (moles/volume)Ordered By: Cecil Kwok on 05-27-2024 Sodium [Moles/Vol] 143 mmol/L 133-145 [facility] Serum or plasma urea nitroge n measurement (mass/volume)Ordered By: Cecil Kwok on 05-27-2024 Urea nitrogen [Mass/Vol] 23 mg/dL High 4-19 [facility] Total proteinOrdered By: Letty olveraamieher Kwok on 05-27-2024 Protein [Mass/Vol] 6.5 g/dL 5.9-8.4 [facility] Triglycerides measurementOrd ered By: Cecil Kwok on 05-27-2024 Triglyceride [Mass/Vol] 69 mg/dL <199 [facility] Comment on above: The drugs N-Acetylcy steine and Metamizole may falsely depress this assay. Normal range: <150 mg/dLBorderline High: 150-199 mg/dLHigh: 200-499 mg/dLVery High: >500 mg/dL White blood cell (WBC) count Ordered By: Cecil Kwok on 05-27-2024 WBC (Bld) [#/Vol] 6.2 10*3/uL 4.4-11.0 [facility] LABORATORYOrdered By: Kayla York on 09-03-2023 Albumin DL <= 20 mg/L (U) [Mass/Vol] 307 mcg/dL Invalid Interpretation Code AO ADM SS Albumin/Creatinine DL <= 20 mg/L (U) [Mass ratio] 12 mcg/mg Normal 0 - 30 mcg/mg AO ADM SS Creatinine (U) [Mass/Vol] 25.6 mg/dL Low 39.0 - 259.0 mg/dL AO ADM SS MALBRon 09-03-2023 U Creatinine 25.6 mg/dL Low 39.0-259.0 [facility] ([place]) Comment on above: Performed By: #### G FR, CMP, DIMER, MG, PBNP #### [address] [address] U Microalb 307 mcg/dL Normal [facility] ([place]) Comment on above: Performed By: #### G FR, CMP, DIMER, MG, PBNP #### [address] [address] U Ratio Alb/Cre 12 mcg/mg Normal 0-30 [facility] ([place]) Comment on above: Performed By: #### G FR, CMP, DIMER, MG, PBNP #### [address] [address] .GFRon 08-04-2023 GFR 58 ml/min/1.73sqm Normal [facility] ([place]) Comment on above: Result Comment: GFR Population mean for , Non- Americans Ages 20-29 = 116 mL/min/1.73 sq.m. Ages 30-39 = 107 mL/min/1.73 sq.m. Ages 40-49 = 99 mL/min/1.73 sq.m. Ages 50-59 = 93 mL/min/1.73 sq.m. Ages 60-69 = 85 mL/min/1.73 sq.m. Ages 70+ = 75 mL/min/1.73 sq.m. Chronic Kidney Disease: Less than 60 mL/min/1.73 square meters End Stage Renal Disease: Less than 15 mL/min/1.73 square meters Performed By: #### G FR, CMP, DIMER, MG, PBNP #### [address] [address] GFR Non- 48 ml/min/1.73sqm Normal [facility] ([place]) Comment on above: Result Comment: GFR Population mean for , Non- Americans Ages 20-29 = 116 mL/min/1.73 sq.m. Ages 30-39 = 107 mL/min/1.73 sq.m. Ages 40-49 = 99 mL/min/1.73 sq.m. Ages 50-59 = 93 mL/min/1.73 sq.m. Ages 60-69 = 85 mL/min/1.73 sq.m. Ages 70+ = 75 mL/min/1.73 sq.m. Chronic Kidney Disease: Less than 60 mL/min/1.73 square meters End Stage Renal Disease: Less than 15 mL/min/1.73 square meters Performed By: #### G FR, CMP, DIMER, MG, PBNP #### [address] [address] CMPon 08-04-2023 Albumin Level 4.2 G/dL Normal 3.4-4.8 [facility] ([place]) Comment on above: Performed By: #### G FR, CMP, DIMER, MG, PBNP #### [address] [address] Albumin/Globulin [Mass ratio] 1.6 {ratio} Normal 1.1-2.5 [facility] ([place]) Comment on above: Performed By: #### G FR, CMP, DIMER, MG, PBNP #### [address] [address] ALP [Catalytic activity/Vol] 76 U/L Normal 40-135 [facility] ([place]) Comment on above: Performed By: #### G FR, CMP, DIMER, MG, PBNP #### [address] [address] ALT [Catalytic activity/Vol] 39 U/L Normal 16-63 [facility] ([place]) Comment on above: Performed By: #### G FR, CMP, DIMER, MG, PBNP #### [address] [address] AST [Catalytic activity/Vol] 34 U/L Normal 10-40 [facility] ([place] Comment on above: Performed By: #### G FR, CMP, DIMER, MG, PBNP #### [address] [address] Bili Total 0.9 mg/dL Normal 0.2-1.0 [facility] ([place]) Comment on above: Result Comment: Use of this assay is not recommended for patients undergoing treatment with eltrombopag due to the potential for falsely elevated results. Performed By: #### G FR, CMP, DIMER, MG, PBNP #### [address] [address] BUN/Creatinine Ratio 18 ratio Normal 7-27 [facility] ([place]) Comment on above: Performed By: #### G FR, CMP, DIMER, MG, PBNP #### [address] [address] Calcium [Mass/Vol] 9.8 mg/dL Normal 8.4-10.2 [facility] ([place]) Comment on above: Performed By: #### G FR, CMP, DIMER, MG, PBNP #### [address] [address] Chloride [Moles/Vol] 102 mmol/L Normal 98-107 [facility] ([place]) Comment on above: Performed By: #### G FR, CMP, DIMER, MG, PBNP #### [place] [address] CO2 [Moles/Vol] 33 mmol/L High 23-31 [facility] ([place]) Comment on above: Performed By: #### G FR, CMP, DIMER, MG, PBNP #### [place] [address] Creatinine [Mass/Vol] 1.42 mg/dL High 0.70-1.30 [facility] ([place]) Comment on above: Performed By: #### G FR, CMP, DIMER, MG, PBNP #### [place] [address] Electrolyte Balance 8.0 mEq/L Normal 4.0-15.0 [facility] ([place]) Comment on above: Performed By: #### G FR, CMP, DIMER, MG, PBNP #### [address] [address] Globulin 2.7 G/dL Normal [facility] ([place]) Comment on above: Performed By: #### G FR, CMP, DIMER, MG, PBNP #### [place] [address] Glucose [Mass/Vol] 107 mg/dL Normal 83-110 [facility] ([place]) Comment on above: Performed By: #### G FR, CMP, DIMER, MG, PBNP #### [place] [address] Potassium [Moles/Vol] 4.2 mmol/L Normal 3.5-5.1 [facility] ([place]) Comment on above: Performed By: #### G FR, CMP, DIMER, MG, PBNP #### [address] [address] Sodium [Moles/Vol] 143 mmol/L Normal 136-145 [facility] ([place]) Comment on above: Performed By: #### G FR, CMP, DIMER, MG, PBNP #### [address] [address] Total Protein 6.9 G/dL Normal 6.4-8.2 [facility] ([place] Comment on above: Performed By: #### G FR, CMP, DIMER, MG, PBNP #### [address] [address] Urea nitrogen [Mass/Vol] 26 mg/dL High 7-18 [facility] ([place] Comment on above: Performed By: #### G FR, CMP, DIMER, MG, PBNP #### [address] [address] DIMERon 08-04-2023 D-Dimer 239 ng/mL D-DU High 0-230 [facility] ([place] Comment on above: Order Comment: STAT Result Comment: Resu lts reported in D-DU ng/mL. Positive for D-dimer. A positive D-Dimer may occur in the following: DVT, PE, DIC, Trauma, Cancer, Sepsis, , Rheumatoid arthritis, Myocardial infarction and Cirrhosis. The presence of Rheumatoid Factor and HAMA (human mouse antibody) produces an overestimation of test results. The result of the D-Dimer test should be evaluated in the context of all the clinical and laboratory data available. In those instances where the laboratory result does not agree with the clinical evaluation, additional tests should be performed accordingly. If the D-Dimer result is used to exclude DVT or PE, the recommended cutoff value is less than 230 ng/mL. The D-Dimer result should not be used alone to rule in DVT/PE, but should be used in conjunction with a clinical pretest probability (PTP)assessment model to exclude venous thromboembolism (VTE) in outpatients suspected of deep venous thrombosis (DVT) and pulmonary embolism (PE). Performed By: #### G FR, CMP, DIMER, MG, PBNP #### [address] [address] LABORATORYOrdered By: SYSTEM SYSTEM on 08-04-2023 Albumin BCP dye [Mass/Vol] 4.2 G/dL Normal 3.4 - 4.8 G/dL AO ADM SS Albumin/Globulin [Mass ratio] 1.6 {ratio} Normal 1.1 - 2.5 ratio AO ADM SS ALP [Catalytic activity/Vol] 76 U/L Normal 40 - 135 U/L AO ADM SS ALT With P-5'-P [Catalytic activity/Vol] 39 U/L Normal 16 - 63 U/L AO ADM SS AST With P-5'-P [Catalytic activity/Vol] 34 U/L Normal 10 - 40 U/L AO ADM SS Bilirubin [Mass/Vol] 0.9 mg/dL Normal 0.2 - 1 .0 mg/dL AO ADM SS Comment on above: Interpretive Data: U se of this assay is not recommended for patients undergoing treatment with eltrombopag due to the potential for falsely elevated results. Calcium [Mass/Vol] 9.8 mg/dL Normal 8.4 - 10. 2 mg/dL AO ADM SS Chloride [Moles/Vol] 102 mmol/L Normal 98 - 10 7 mmol/L AO ADM SS CO2 [Moles/Vol] 33 mmol/L High 23 - 31 mmol/L AO ADM SS Creatinine [Mass/Vol] 1.42 mg/dL High 0.70 - 1.30 mg/dL AO ADM SS Electrolyte Balance 8.0 mEq/L Normal 4.0 - 15 .0 mEq/L AO ADM SS GFR/1.73 sq M.predicted among blacks MDRD (S/P/Bld) [Vol rate/Area] 58 ml/min/1.73sqm Invalid Interpretation Code AO Chemistry S Comment on above: Interpretive Data: GFR Population mean for , Non- Americans Ages 20-29 = 116 mL/min/1.73 sq.m. Ages 30-39 = 107 mL/min/1.73 sq.m. Ages 40-49 = 99 mL/min/1.73 sq.m. Ages 50-59 = 93 mL/min/1.73 sq.m. Ages 60-69 = 85 mL/min/1.73 sq.m. Ages 70+ = 75 mL/min/1.73 sq.m. Chronic Kidney Disease: Less than 60 mL/min/1.73 square meters End Stage Renal Disease: Less than 15 mL/min/1.73 square meters GFR/1.73 sq M.predicted among non-blacks MDRD (S/P/Bld) [Vol rate/Area] 48 ml/min/1.73sqm Invalid Interpretation Code AO Chemistry S Comment on above: Interpretive Data: GFR Population mean for , Non- Americans Ages 20-29 = 116 mL/min/1.73 sq.m. Ages 30-39 = 107 mL/min/1.73 sq.m. Ages 40-49 = 99 mL/min/1.73 sq.m. Ages 50-59 = 93 mL/min/1.73 sq.m. Ages 60-69 = 85 mL/min/1.73 sq.m. Ages 70+ = 75 mL/min/1.73 sq.m. Chronic Kidney Disease: Less than 60 mL/min/1.73 square meters End Stage Renal Disease: Less than 15 mL/min/1.73 square meters Globulin 2.7 G/dL Invalid Interpretation Code AO ADM SS Glucose [Mass/Vol] 107 mg/dL Normal 83 - 110 mg/dL AO ADM SS Magnesium [Mass/Vol] 2.0 mg/dL Normal 1.8 - 2 .4 mg/dL AO ADM SS Natriuretic peptide.B prohormone N-Terminal [Mass/Vol] 28 pg/mL Normal 0 - 450 pg/mL AO ADM SS Comment on above: Interpretive Data: N T-proBNP results of less than 300 pg/mL effectively rules out acute congestive heart failure with 99% negative predictive value. Potassium [Moles/Vol] 4.2 mmol/L Normal 3.5 - 5.1 mmol/L AO ADM SS Protein [Mass/Vol] 6.9 G/dL Normal 6.4 - 8.2 G/dL AO ADM SS Sodium [Moles/Vol] 143 mmol/L Normal 136 - 145 mmol/L AO ADM SS Urea nitrogen [Mass/Vol] 26 mg/dL High 7 - 18 mg/d L AO ADM SS Urea nitrogen/Creatinine [Mass ratio] 18 ratio Normal 7 - 27 ratio AO ADM SS LABORATORYOrdered By: Rowan Tavarez on 08-04-2023 Fibrin D-dimer DDU (PPP) [Mass/Vol] 239 ng/mL D-DU High 0 - 230 ng/mL D-DU AO [facility] SS Comment on above: Result Comment: Resu lts reported in D-DU ng/mL. Positive for D-dimer. A positive D-Dimer may occur in the following: DVT, PE, DIC, Trauma, Cancer, Sepsis, , Rheumatoid arthritis, Myocardial infarction and Cirrhosis. The presence of Rheumatoid Factor and HAMA (human mouse antibody) produces an overestimation of test results. Interpretive Data: T he result of the D-Dimer test should be evaluated in the context of all the clinical and laboratory data available. In those instances where the laboratory result does not agree with the clinical evaluation, additional tests should be performed accordingly. If the D-Dimer result is used to exclude DVT or PE, the recommended cutoff value is less than 230 ng/mL. The D-Dimer result should not be used alone to rule in DVT/PE, but should be used in conjunction with a clinical pretest probability (PTP)assessment model to exclude venous thromboembolism (VTE) in outpatients suspected of deep venous thrombosis (DVT) and pulmonary embolism (PE). MGon 08-04-2023 Magnesium [Mass/Vol] 2.0 mg/dL Normal 1.8-2.4 [facility] ([place]) Comment on above: Performed By: #### G FR, CMP, DIMER, MG, PBNP #### [place] [address] PBNPon 08-04-2023 Natriuretic peptide B (Bld) [Mass/Vol] 28 pg/mL Normal 0-450 [facility] ([place]) Comment on above: Result Comment: NT-p roBNP results of less than 300 pg/mL effectively rules out acute congestive heart failure with 99% negative predictive value. Performed By: #### G FR, CMP, DIMER, MG, PBNP #### [place] [id number] LABORATORYOrdered By: Ruiz Lewis on 07-03-2023 Albumin DL <= 20 mg/L (U) [Mass/Vol] 171 mcg/dL Invalid Interpretation Code AO ADM SS Albumin/Creatinine DL <= 20 mg/L (U) [Mass ratio] 2 mcg/mg Normal 0 - 30 mcg/mg AO ADM SS Creatinine (U) [Mass/Vol] 78.0 mg/dL Normal 39.0 - 259.0 mg/dL AO ADM SS MALBRon 07-03-2023 U Creatinine 78.0 mg/dL Normal 39.0-259.0 [facility] ([place]) Comment on above: Performed By: #### G FR, CMP, DIMER, MG, PBNP #### [address] [address] U Microalb 171 mcg/dL Normal [facility] ([place]) Comment on above: Performed By: #### G FR, CMP, DIMER, MG, PBNP #### [address] [address] U Ratio Alb/Cre 2 mcg/mg Normal 0-30 [facility] ([place]) Comment on above: Performed By: #### G FR, CMP, DIMER, MG, PBNP #### [address] [address] .GFRon 06-28-2023 GFR 66 ml/min/1.73sqm Normal [facility] ([place]) Comment on above: Result Comment: GFR Population mean for , Non- Americans Ages 20-29 = 116 mL/min/1.73 sq.m. Ages 30-39 = 107 mL/min/1.73 sq.m. Ages 40-49 = 99 mL/min/1.73 sq.m. Ages 50-59 = 93 mL/min/1.73 sq.m. Ages 60-69 = 85 mL/min/1.73 sq.m. Ages 70+ = 75 mL/min/1.73 sq.m. Chronic Kidney Disease: Less than 60 mL/min/1.73 square meters End Stage Renal Disease: Less than 15 mL/min/1.73 square meters Performed By: #### G FR, CMP, DIMER, MG, PBNP #### [address] [address] GFR Non- 55 ml/min/1.73sqm Normal [facility] ([place]) Comment on above: Result Comment: GFR Population mean for , Non- Americans Ages 20-29 = 116 mL/min/1.73 sq.m. Ages 30-39 = 107 mL/min/1.73 sq.m. Ages 40-49 = 99 mL/min/1.73 sq.m. Ages 50-59 = 93 mL/min/1.73 sq.m. Ages 60-69 = 85 mL/min/1.73 sq.m. Ages 70+ = 75 mL/min/1.73 sq.m. Chronic Kidney Disease: Less than 60 mL/min/1.73 square meters End Stage Renal Disease: Less than 15 mL/min/1.73 square meters Performed By: #### G FR, CMP, DIMER, MG, PBNP #### [address] [address] BMPon 06-28-2023 BUN/Creatinine Ratio 27 ratio Normal 7-27 [facility] ([place]) Comment on above: Performed By: #### G FR, CMP, DIMER, MG, PBNP #### [address] [address] Calcium [Mass/Vol] 9.7 mg/dL Normal 8.4-10.2 [facility] ([place]) Comment on above: Performed By: #### G FR, CMP, DIMER, MG, PBNP #### [address] [address] Chloride [Moles/Vol] 103 mmol/L Normal 98-107 [facility] ([place]) Comment on above: Performed By: #### G FR, CMP, DIMER, MG, PBNP #### [address] [address] CO2 [Moles/Vol] 32 mmol/L High 23-31 [facility] ([place]) Comment on above: Performed By: #### G FR, CMP, DIMER, MG, PBNP #### [address] [address] Creatinine [Mass/Vol] 1.27 mg/dL Normal 0.70-1.30 [facility] ([place]) Comment on above: Performed By: #### G FR, CMP, DIMER, MG, PBNP #### [address] [address] Electrolyte Balance 7.0 mEq/L Normal 4.0-15.0 [facility] ([place]) Comment on above: Performed By: #### G FR, CMP, DIMER, MG, PBNP #### [address] [address] Glucose [Mass/Vol] 111 mg/dL High 83-110 [facility] ([place]) Comment on above: Performed By: #### G FR, CMP, DIMER, MG, PBNP #### [address] [address] Potassium [Moles/Vol] 4.7 mmol/L Normal 3.5-5.1 [facility] ([place]) Comment on above: Performed By: #### G FR, CMP, DIMER, MG, PBNP #### [address] [address] Sodium [Moles/Vol] 142 mmol/L Normal 136-145 [facility] ([place]) Comment on above: Performed By: #### G FR, CMP, DIMER, MG, PBNP #### [address] [address] Urea nitrogen [Mass/Vol] 34 mg/dL High 7-18 [facility] ([place]) Comment on above: Performed By: #### G FR, CMP, DIMER, MG, PBNP #### [address] [address] LABORATORYOrdered By: SYSTEM SYSTEM on 06-28-2023 Calcium [Mass/Vol] 9.7 mg/dL Normal 8.4 - 10. 2 mg/dL AO ADM SS Chloride [Moles/Vol] 103 mmol/L Normal 98 - 10 7 mmol/L AO ADM SS CO2 [Moles/Vol] 32 mmol/L High 23 - 31 mmol/L AO ADM SS Creatinine [Mass/Vol] 1.27 mg/dL Normal 0.70 - 1.30 mg/dL AO ADM SS Electrolyte Balance 7.0 mEq/L Normal 4.0 - 15 .0 mEq/L AO ADM SS GFR/1.73 sq M.predicted among blacks MDRD (S/P/Bld) [Vol rate/Area] 66 ml/min/1.73sqm Invalid Interpretation Code AO Chemistry S Comment on above: Interpretive Data: GFR Population mean for , Non- Americans Ages 20-29 = 116 mL/min/1.73 sq.m. Ages 30-39 = 107 mL/min/1.73 sq.m. Ages 40-49 = 99 mL/min/1.73 sq.m. Ages 50-59 = 93 mL/min/1.73 sq.m. Ages 60-69 = 85 mL/min/1.73 sq.m. Ages 70+ = 75 mL/min/1.73 sq.m. Chronic Kidney Disease: Less than 60 mL/min/1.73 square meters End Stage Renal Disease: Less than 15 mL/min/1.73 square meters GFR/1.73 sq M.predicted among non-blacks MDRD (S/P/Bld) [Vol rate/Area] 55 ml/min/1.73sqm Invalid Interpretation Code AO Chemistry S Comment on above: Interpretive Data: GFR Population mean for , Non- Americans Ages 20-29 = 116 mL/min/1.73 sq.m. Ages 30-39 = 107 mL/min/1.73 sq.m. Ages 40-49 = 99 mL/min/1.73 sq.m. Ages 50-59 = 93 mL/min/1.73 sq.m. Ages 60-69 = 85 mL/min/1.73 sq.m. Ages 70+ = 75 mL/min/1.73 sq.m. Chronic Kidney Disease: Less than 60 mL/min/1.73 square meters End Stage Renal Disease: Less than 15 mL/min/1.73 square meters Glucose [Mass/Vol] 111 mg/dL High 83 - 110 mg/dL AO ADM SS Potassium [Moles/Vol] 4.7 mmol/L Normal 3.5 - 5.1 mmol/L AO ADM SS Sodium [Moles/Vol] 142 mmol/L Normal 136 - 145 mmol/L AO ADM SS Urea nitrogen [Mass/Vol] 34 mg/dL High 7 - 18 mg/d L AO ADM SS Urea nitrogen/Creatinine [Mass ratio] 27 ratio Normal 7 - 27 ratio AO ADM SS .GFRon 05-30-2023 GFR 62 ml/min/1.73sqm Normal [facility] ([place]) Comment on above: Result Comment: GFR Population mean for , Non- Americans Ages 20-29 = 116 mL/min/1.73 sq.m. Ages 30-39 = 107 mL/min/1.73 sq.m. Ages 40-49 = 99 mL/min/1.73 sq.m. Ages 50-59 = 93 mL/min/1.73 sq.m. Ages 60-69 = 85 mL/min/1.73 sq.m. Ages 70+ = 75 mL/min/1.73 sq.m. Chronic Kidney Disease: Less than 60 mL/min/1.73 square meters End Stage Renal Disease: Less than 15 mL/min/1.73 square meters Performed By: #### G FR, CMP, DIMER, MG, PBNP #### [address] [address] GFR Non- 51 ml/min/1.73sqm Normal [facility] ([place]) Comment on above: Result Comment: GFR Population mean for , Non- Americans Ages 20-29 = 116 mL/min/1.73 sq.m. Ages 30-39 = 107 mL/min/1.73 sq.m. Ages 40-49 = 99 mL/min/1.73 sq.m. Ages 50-59 = 93 mL/min/1.73 sq.m. Ages 60-69 = 85 mL/min/1.73 sq.m. Ages 70+ = 75 mL/min/1.73 sq.m. Chronic Kidney Disease: Less than 60 mL/min/1.73 square meters End Stage Renal Disease: Less than 15 mL/min/1.73 square meters Performed By: #### G FR, CMP, DIMER, MG, PBNP #### [address] [address] B12on 05-30-2023 Cobalamin (Vitamin B12) [Mass/Vol] 610 pg/mL Normal 211-911 [facility] ([place]) Comment on above: Performed By: #### G FR, CMP, DIMER, MG, PBNP #### [address] [address] BMPon 05-30-2023 BUN/Creatinine Ratio 21 ratio Normal 7-27 [facility] ([place]) Comment on above: Order Comment: STAT Performed By: #### P RALB, B12 #### [place] [id number] #### TSH, VIDH, BMP, PBNP, GFR, PSA #### [address] [address] Calcium [Mass/Vol] 9.6 mg/dL Normal 8.4-10.2 [facility] ([place]) Comment on above: Order Comment: STAT Performed By: #### P RALB, B12 #### [place] [id number] #### TSH, VIDH, BMP, PBNP, GFR, PSA #### [address] [address] Chloride [Moles/Vol] 108 mmol/L High 98-107 [facility] ([place]) Comment on above: Order Comment: STAT Performed By: #### P RALB, B12 #### [place] [id number] #### TSH, VIDH, BMP, PBNP, GFR, PSA #### [address] [address] CO2 [Moles/Vol] 33 mmol/L High 23-31 [facility] ([place]) Comment on above: Order Comment: STAT Performed By: #### P RALB, B12 #### [place] [id number] #### TSH, VIDH, BMP, PBNP, GFR, PSA #### [address] [address] Creatinine [Mass/Vol] 1.34 mg/dL High 0.70-1.30 [facility] ([place]) Comment on above: Order Comment: STAT Performed By: #### P RALB, B12 #### [place] [address] #### TSH, VIDH, BMP, PBNP, GFR, PSA #### [address] [address] Electrolyte Balance -4.0 mEq/L Low 4.0-15.0 [facility] ([place]) Comment on above: Order Comment: STAT Performed By: #### P RALB, B12 #### [place] [address] #### TSH, VIDH, BMP, PBNP, GFR, PSA #### [address] [address] Glucose [Mass/Vol] 84 mg/dL Normal 83-110 [facility] ([place]) Comment on above: Order Comment: STAT Performed By: #### P RALB, B12 #### [place] [address] #### TSH, VIDH, BMP, PBNP, GFR, PSA #### [address] [address] Potassium [Moles/Vol] 4.7 mmol/L Normal 3.5-5.1 [facility] ([place]) Comment on above: Order Comment: STAT Performed By: #### P RALB, B12 #### [place] [address] #### TSH, VIDH, BMP, PBNP, GFR, PSA #### [address] [address] Sodium [Moles/Vol] 137 mmol/L Normal 136-145 [facility] ([place]) Comment on above: Order Comment: STAT Performed By: #### P RALB, B12 #### [place] [address] #### TSH, VIDH, BMP, PBNP, GFR, PSA #### [address] [address] Urea nitrogen [Mass/Vol] 28 mg/dL High 7-18 [facility] ([place]) Comment on above: Order Comment: STAT Performed By: #### P RALB, B12 #### [place] [address] #### TSH, VIDH, BMP, PBNP, GFR, PSA #### [address] [address] LABORATORYOrdered By: SYSTEM SYSTEM on 05-30-2023 25-hydroxyvitamin D3 [Mass/Vol] 41.5 ng/mL Invalid Interpretation Code AO ADM SS Comment on above: Interpretive Data: I nterpretive Values Based on Total 25(OH) Vitamin D: Deficient <20 ng/mL Insufficient 20 - <30 ng/mL Sufficient 30-100 ng/mL Calcium [Mass/Vol] 9.6 mg/dL Normal 8.4 - 10. 2 mg/dL AO ADM SS Chloride [Moles/Vol] 108 mmol/L High 98 - 10 7 mmol/L AO ADM SS CO2 [Moles/Vol] 33 mmol/L High 23 - 31 mmol/L AO ADM SS Cobalamin (Vitamin B12) [Mass/Vol] 610 pg/mL Normal 211 - 911 pg/mL AH ADM SS Creatinine [Mass/Vol] 1.34 mg/dL High 0.70 - 1.30 mg/dL AO ADM SS Electrolyte Balance -4.0 mEq/L Low 4.0 - 15 .0 mEq/L AO ADM SS GFR/1.73 sq M.predicted among blacks MDRD (S/P/Bld) [Vol rate/Area] 62 ml/min/1.73sqm Invalid Interpretation Code AO Chemistry S Comment on above: Interpretive Data: GFR Population mean for , Non- Americans Ages 20-29 = 116 mL/min/1.73 sq.m. Ages 30-39 = 107 mL/min/1.73 sq.m. Ages 40-49 = 99 mL/min/1.73 sq.m. Ages 50-59 = 93 mL/min/1.73 sq.m. Ages 60-69 = 85 mL/min/1.73 sq.m. Ages 70+ = 75 mL/min/1.73 sq.m. Chronic Kidney Disease: Less than 60 mL/min/1.73 square meters End Stage Renal Disease: Less than 15 mL/min/1.73 square meters GFR/1.73 sq M.predicted among non-blacks MDRD (S/P/Bld) [Vol rate/Area] 51 ml/min/1.73sqm Invalid Interpretation Code AO Chemistry S Comment on above: Interpretive Data: GFR Population mean for , Non- Americans Ages 20-29 = 116 mL/min/1.73 sq.m. Ages 30-39 = 107 mL/min/1.73 sq.m. Ages 40-49 = 99 mL/min/1.73 sq.m. Ages 50-59 = 93 mL/min/1.73 sq.m. Ages 60-69 = 85 mL/min/1.73 sq.m. Ages 70+ = 75 mL/min/1.73 sq.m. Chronic Kidney Disease: Less than 60 mL/min/1.73 square meters End Stage Renal Disease: Less than 15 mL/min/1.73 square meters Glucose [Mass/Vol] 84 mg/dL Normal 83 - 110 mg/dL AO ADM SS Natriuretic peptide.B prohormone N-Terminal [Mass/Vol] 36 pg/mL Normal 0 - 450 pg/mL AO ADM SS Comment on above: Interpretive Data: N T-proBNP results of less than 300 pg/mL effectively rules out acute congestive heart failure with 99% negative predictive value. Potassium [Moles/Vol] 4.7 mmol/L Normal 3.5 - 5.1 mmol/L AO ADM SS Prealbumin [Mass/Vol] 23.7 mg/dL Normal 10.0 - 40.0 mg/dL AH ADM SS Comment on above: Interpretive Data: * *Note - New Reference Range in effect 19 Prostate specific Ag [Mass/Vol] 0.31 ng/mL Normal 0.00 - 4.00 ng/mL AO ADM SS Sodium [Moles/Vol] 137 mmol/L Normal 136 - 145 mmol/L AO ADM SS TSH Qn 1.81 m[IU]/L Normal 0.36 - 3.74 mcIU/mL AO ADM SS Urea nitrogen [Mass/Vol] 28 mg/dL High 7 - 18 mg/d L AO ADM SS Urea nitrogen/Creatinine [Mass ratio] 21 ratio Normal 7 - 27 ratio AO ADM SS PBNPon 05-30-2023 Natriuretic peptide B (Bld) [Mass/Vol] 36 pg/mL Normal 0-450 [facility] ([place]) Comment on above: Order Comment: STAT Result Comment: NT-p roBNP results of less than 300 pg/mL effectively rules out acute congestive heart failure with 99% negative predictive value. Performed By: #### P RALJeremy, B12 #### [place] [id number] #### TSH, VIDH, BMP, PBNP, GFR, PSA #### [address] [address] PRALBon 05-30-2023 Prealbumin [Mass/Vol] 23.7 mg/dL Normal 10.0-40.0 [facility] ([place]) Comment on above: Result Comment: No te - New Reference Range in effect 19 Performed By: #### G FR, CMP, DIMER, MG, PBNP #### [address] [address] PSAon 05-30-2023 Prostate Specific Antigen 0.31 ng/mL Normal 0.00-4.00 [facility] ([place]) Comment on above: Performed By: #### P RALB, B12 #### [place] [address] #### TSH, VIDH, BMP, PBNP, GFR, PSA #### [address] [address] TSHon 05-30-2023 TSH Qn 1.81 m[IU]/L Normal 0.36-3.74 [facility] ([place]) Comment on above: Order Comment: REFLE X FREE T4 IF ABNORMAL! (TSH < 0.36, or TSH > 3.64) Performed By: #### P RALB, B12 #### [place] [address] #### TSH, VIDH, BMP, PBNP, GFR, PSA #### [address] [address] VIDHon 05-30-2023 Vit. D 25-Hydroxy 41.5 ng/mL Normal [facility] ([place]) Comment on above: Result Comment: Inte rpretive Values Based on Total 25(OH) Vitamin D: Deficient <20 ng/mL Insufficient 20 - <30 ng/mL Sufficient 30-100 ng/mL Performed By: #### G FR, CMP, DIMER, MG, PBNP #### [address] [address] BD BONE DENSITY DEXA AXIAL S Ran 04-03-2023 BD BONE DENSITY DEXA AXIAL SKELETON ADDENDUM ADDENDUM: The above study should read under impression: Normal DEXA study by WHO criteria. Interpreted by: Georgiana Cantor Preliminary Report By: Georgiana Cantor Electronically signed By Georgiana Cantor Dictated Date: 04/03/2023 10:39:05 AM Prelim Date: 04/03/2023 10:40:19 AM Sign Date: 04/03/2023 10:40:19 AM Ordering Provider: CYNTHIA SHEFFIELD ORIGINAL EXAMINATION: BONE DENSITOMETRY 03/30/2023 11:28 am TECHNIQUE: A bone density dual x-ray absorptiometry (DEXA) scan was performed of the lumbar spine and right hip on a [employer] system. COMPARISON: None. HISTORY: ORDERING SYSTEM PROVIDED HISTORY: Reason for Exam: Osteoporosis Screening FINDINGS: RIGHT HIP: The bone mineral density in the total hip is measured at 1.124 g/cm2 corresponding to a T-score of 0.6. This is within the normal range by WHO criteria. The bone mineral density of the femoral neck is measured at 0.948 g/cm2 corresponding to a T-score of 0.1. This is within the normal range by WHO criteria. Lumbar spine: The bone mineral density of the lumbar spine, L1 through L4 is measured at 1.443 g/cm2 corresponding to a T-score of 3.2. This is within the normal range by WHO criteria. 10 year fracture Risk: FRAX not reported because all T-scores for the total hip, spine and femoral neck are at or above -1.0. IMPRESSION: by WHO criteria. Interpreted by: Georgiana Cantor Preliminary Report By: Georgiana Cantor Electronically signed By Georgiana Cantor Dictated Date: 03/30/2023 4:55:55 PM Prelim Date: 03/30/2023 4:57:59 PM Sign Date: 03/30/2023 4:57:59 PM Ordering Provider: CYNTHIA SHEFFIELD Normal [facility] ([place]) DIRECT LDLon 03-06-2023 LDL Chol Direct 59 mg/dL Normal 0-99 [facility] ([place]) Comment on above: Result Comment: Perf ormed At: [facility] [id number] Chidi Cannon PhD Ph:[phone] Performed By: #### G FR, CMP, DIMER, MG, PBNP #### [address] [address] .Auto Diffon 03-05-2023 Basophil, Absolute 0.0 10 3/mcL Normal 0.0-0.2 [facility] ([place]) Comment on above: Performed By: #### G FR, CMP, DIMER, MG, PBNP #### [address] [address] Basophils/100 WBC (Bld) 0.7 % Normal 0.0-2.5 [facility] ([place]) Comment on above: Performed By: #### G FR, CMP, DIMER, MG, PBNP #### [address] [address] Eosinophil, Absolute 0.1 10 3/mcL Normal 0.0-0.4 [facility] Comment on above: Performed By: #### G FR, CMP, DIMER, MG, PBNP #### [address] [address] Eosinophils/100 WBC (Bld) 1.4 % Normal 0.0-7.0 [facility] ([place] Comment on above: Performed By: #### G FR, CMP, DIMER, MG, PBNP #### [address] [address] Lymphocyte, Absolute 1.1 10 3/mcL Normal 0.8-3.9 [facility] [place] Comment on above: Performed By: #### G FR, CMP, DIMER, MG, PBNP #### [address] [address] Lymphocytes/100 WBC (Bld) 16.3 % Normal 10.0-50.0 [facility] ([place] Comment on above: Performed By: #### G FR, CMP, DIMER, MG, PBNP #### [address] [address] Monocyte, Absolute 0.3 10 3/mcL Normal 0.2-1.0 [facility] ([place]) Comment on above: Performed By: #### G FR, CMP, DIMER, MG, PBNP #### [address] [address] Monocytes/100 WBC (Bld) 4.2 % Normal 1.7-13.0 [facility] ([place]) Comment on above: Performed By: #### G FR, CMP, DIMER, MG, PBNP #### [address] [address] Neutrophils/100 WBC (Bld) 77.4 % Normal 37.0-80.0 [facility] ([place] Comment on above: Performed By: #### G FR, CMP, DIMER, MG, PBNP #### [address] [address] .GFRon 03-05-2023 GFR Non- 59 ml/min/1.73sqm Normal [facility] ([place]) Comment on above: Result Comment: GFR Population mean for , Non- Americans Ages 20-29 = 116 mL/min/1.73 sq.m. Ages 30-39 = 107 mL/min/1.73 sq.m. Ages 40-49 = 99 mL/min/1.73 sq.m. Ages 50-59 = 93 mL/min/1.73 sq.m. Ages 60-69 = 85 mL/min/1.73 sq.m. Ages 70+ = 75 mL/min/1.73 sq.m. Chronic Kidney Disease: Less than 60 mL/min/1.73 square meters End Stage Renal Disease: Less than 15 mL/min/1.73 square meters Performed By: #### G FR, CMP, DIMER, MG, PBNP #### [address] [address] GFR 72 ml/min/1.73sqm Normal [facility] ([place] Comment on above: Result Comment: GFR Population mean for , Non- Americans Ages 20-29 = 116 mL/min/1.73 sq.m. Ages 30-39 = 107 mL/min/1.73 sq.m. Ages 40-49 = 99 mL/min/1.73 sq.m. Ages 50-59 = 93 mL/min/1.73 sq.m. Ages 60-69 = 85 mL/min/1.73 sq.m. Ages 70+ = 75 mL/min/1.73 sq.m. Chronic Kidney Disease: Less than 60 mL/min/1.73 square meters End Stage Renal Disease: Less than 15 mL/min/1.73 square meters Performed By: #### G FR, CMP, DIMER, MG, PBNP #### [place] [id number] .NEUABSon 03-05-2023 Neutrophil, Absolute 5.0 10 3/mcL Normal 2.9-6.2 [facility] [place] Comment on above: Performed By: #### G FR, CMP, DIMER, MG, PBNP #### [place] [id number] A1Con 03-05-2023 HbA1c (Bld) [Mass fraction] 5.7 % Normal 4.3-6.4 [facility] ([place]) Comment on above: Performed By: #### G FR, CMP, DIMER, MG, PBNP #### [place] [id number] CBCon 03-05-2023 Erythrocyte distribution width (RBC) [Ratio] 14.3 % Normal 11.5-14.5 [facility] ([place] Comment on above: Performed By: #### G FR, CMP, DIMER, MG, PBNP #### [place] [id number] Hematocrit (Bld) [Volume fraction] 44.0 % Normal 42.0-52.0 [facility] ([place] Comment on above: Performed By: #### G FR, CMP, DIMER, MG, PBNP #### [place] [id number] Hgb 14.8 G/dL Normal 14.0-18.0 [facility] ([place] Comment on above: Performed By: #### G FR, CMP, DIMER, MG, PBNP #### [place] [id number] MCH (RBC) [Entitic mass] 29.8 pg Normal 27.0-31.2 [facility] ([place] Comment on above: Performed By: #### G FR, CMP, DIMER, MG, PBNP #### [address] [address] MCHC 33.6 G/dL Normal 31.8-35.4 [facility] ([place] Comment on above: Performed By: #### G FR, CMP, DIMER, MG, PBNP #### [address] [address] MCV (RBC) [Entitic vol] 88.8 fL Normal 80.0-94.0 [facility] ([place]) Comment on above: Performed By: #### G FR, CMP, DIMER, MG, PBNP #### [address] [address] Platelet 166 10 3/mcL Normal 130-400 [facility] ([place] Comment on above: Performed By: #### G FR, CMP, DIMER, MG, PBNP #### [address] [address] Platelet mean volume (Bld) [Entitic vol] 9.0 fL Normal 7.4-10.4 [facility] ([place]) Comment on above: Performed By: #### G FR, CMP, DIMER, MG, PBNP #### [address] [address] RBC 4.96 10 6/mcL Normal 4.04-6.13 [facility] ([place] Comment on above: Performed By: #### G FR, CMP, DIMER, MG, PBNP #### [address] [address] WBC 6.5 10 3/mcL Normal 4.6-10.8 [facility] ([place] Comment on above: Performed By: #### G FR, CMP, DIMER, MG, PBNP #### [address] [address] CMPon 03-05-2023 Albumin Level 3.9 G/dL Normal 3.4-4.8 [facility] ([place] Comment on above: Performed By: #### G FR, CMP, DIMER, MG, PBNP #### [address] [address] Albumin/Globulin [Mass ratio] 1.3 {ratio} Normal 1.1-2.5 [facility] ([place] Comment on above: Performed By: #### G FR, CMP, DIMER, MG, PBNP #### [address] [address] ALP [Catalytic activity/Vol] 72 U/L Normal 40-135 [facility] ([place] Comment on above: Performed By: #### G FR, CMP, DIMER, MG, PBNP #### [address] [address] ALT [Catalytic activity/Vol] 31 U/L Normal 16-63 [facility] ([place] Comment on above: Performed By: #### G FR, CMP, DIMER, MG, PBNP #### [address] [address] AST [Catalytic activity/Vol] 20 U/L Normal 10-40 [facility] ([place] Comment on above: Performed By: #### G FR, CMP, DIMER, MG, PBNP #### [address] [address] Bili Total 0.7 mg/dL Normal 0.2-1.0 [facility] ([place] Comment on above: Result Comment: Use of this assay is not recommended for patients undergoing treatment with eltrombopag due to the potential for falsely elevated results. Performed By: #### G FR, CMP, DIMER, MG, PBNP #### [address] [address] BUN/Creatinine Ratio 22 ratio Normal 7-27 [facility] ([place] Comment on above: Performed By: #### G FR, CMP, DIMER, MG, PBNP #### [address] [address] Calcium [Mass/Vol] 10.1 mg/dL Normal 8.4-10.2 [facility] ([place]) Comment on above: Performed By: #### G FR, CMP, DIMER, MG, PBNP #### [address] [address] Chloride [Moles/Vol] 105 mmol/L Normal 98-107 [facility] ([place] Comment on above: Performed By: #### G FR, CMP, DIMER, MG, PBNP #### [address] [address] CO2 [Moles/Vol] 29 mmol/L Normal 23-31 [facility] ([place] Comment on above: Performed By: #### G FR, CMP, DIMER, MG, PBNP #### [address] [address] Creatinine [Mass/Vol] 1.18 mg/dL Normal 0.70-1.30 [facility] ([place]) Comment on above: Performed By: #### G FR, CMP, DIMER, MG, PBNP #### [address] [address] Electrolyte Balance 12.0 mEq/L Normal 4.0-15.0 [facility] ([place] Comment on above: Performed By: #### G FR, CMP, DIMER, MG, PBNP #### [address] [address] Globulin 2.9 G/dL Normal [facility] ([place] Comment on above: Performed By: #### G FR, CMP, DIMER, MG, PBNP #### [address] [address] Glucose [Mass/Vol] 105 mg/dL Normal 83-110 [facility] ([place]) Comment on above: Performed By: #### G FR, CMP, DIMER, MG, PBNP #### [address] [address] Potassium [Moles/Vol] 4.7 mmol/L Normal 3.5-5.1 [facility] ([place]) Comment on above: Performed By: #### G FR, CMP, DIMER, MG, PBNP #### [address] [address] Sodium [Moles/Vol] 146 mmol/L High 136-145 [facility] ([place]) Comment on above: Performed By: #### G FR, CMP, DIMER, MG, PBNP #### [address] [address] Total Protein 6.8 G/dL Normal 6.4-8.2 [facility] ([place] Comment on above: Performed By: #### G FR, CMP, DIMER, MG, PBNP #### [address] [address] Urea nitrogen [Mass/Vol] 26 mg/dL High 7-18 [facility] ([place] Comment on above: Performed By: #### G FR, CMP, DIMER, MG, PBNP #### [address] [address] FT4on 03-05-2023 Free T4 [Mass/Vol] 0.84 ng/dL Normal 0.76-1.46 [facility] ([place]) Comment on above: Performed By: #### G FR, CMP, DIMER, MG, PBNP #### [address] [address] LABORATORYOrdered By: SYSTEM SYSTEM on 03-05-2023 Albumin BCP dye [Mass/Vol] 3.9 G/dL Normal 3.4 - 4.8 G/dL AO ADM SS Albumin/Globulin [Mass ratio] 1.3 {ratio} Normal 1.1 - 2.5 ratio AO ADM SS ALP [Catalytic activity/Vol] 72 U/L Normal 40 - 135 U/L AO ADM SS ALT With P-5'-P [Catalytic activity/Vol] 31 U/L Normal 16 - 63 U/L AO ADM SS AST With P-5'-P [Catalytic activity/Vol] 20 U/L Normal 10 - 40 U/L AO ADM SS Basophil, Absolute 0.0 103/mcL Normal 0.0 - 0.2 10^3/mcL AO Workflow SS Basophils/100 WBC (Bld) 0.7 % Normal 0.0 - 2.5 % AO Workflow SS Bilirubin [Mass/Vol] 0.7 mg/dL Normal 0.2 - 1 .0 mg/dL AO ADM SS Comment on above: Interpretive Data: U se of this assay is not recommended for patients undergoing treatment with eltrombopag due to the potential for falsely elevated results. Calcium [Mass/Vol] 10.1 mg/dL Normal 8.4 - 10. 2 mg/dL AO ADM SS Chloride [Moles/Vol] 105 mmol/L Normal 98 - 10 7 mmol/L AO ADM SS CO2 [Moles/Vol] 29 mmol/L Normal 23 - 31 mmol/L AO ADM SS Creatinine [Mass/Vol] 1.18 mg/dL Normal 0.70 - 1.30 mg/dL AO ADM SS Electrolyte Balance 12.0 mEq/L Normal 4.0 - 15 .0 mEq/L AO ADM SS Eosinophil, Absolute 0.1 103/mcL Normal 0.0 - 0 .4 10^3/mcL AO Workflow SS Eosinophils/100 WBC (Bld) 1.4 % Normal 0.0 - 7.0 % AO Workflow SS Erythrocyte distribution width (RBC) [Ratio] 14.3 % Normal 11.5 - 14.5 % AO Workflow SS Free T4 [Mass/Vol] 0.84 ng/dL Normal 0.76 - 1. 46 ng/dL AO ADM SS GFR/1.73 sq M.predicted among blacks MDRD (S/P/Bld) [Vol rate/Area] 72 ml/min/1.73sqm Invalid Interpretation Code AO Chemistry S Comment on above: Interpretive Data: GFR Population mean for , Non- Americans Ages 20-29 = 116 mL/min/1.73 sq.m. Ages 30-39 = 107 mL/min/1.73 sq.m. Ages 40-49 = 99 mL/min/1.73 sq.m. Ages 50-59 = 93 mL/min/1.73 sq.m. Ages 60-69 = 85 mL/min/1.73 sq.m. Ages 70+ = 75 mL/min/1.73 sq.m. Chronic Kidney Disease: Less than 60 mL/min/1.73 square meters End Stage Renal Disease: Less than 15 mL/min/1.73 square meters GFR/1.73 sq M.predicted among non-blacks MDRD (S/P/Bld) [Vol rate/Area] 59 ml/min/1.73sqm Invalid Interpretation Code AO Chemistry S Comment on above: Interpretive Data: GFR Population mean for , Non- Americans Ages 20-29 = 116 mL/min/1.73 sq.m. Ages 30-39 = 107 mL/min/1.73 sq.m. Ages 40-49 = 99 mL/min/1.73 sq.m. Ages 50-59 = 93 mL/min/1.73 sq.m. Ages 60-69 = 85 mL/min/1.73 sq.m. Ages 70+ = 75 mL/min/1.73 sq.m. Chronic Kidney Disease: Less than 60 mL/min/1.73 square meters End Stage Renal Disease: Less than 15 mL/min/1.73 square meters Globulin 2.9 G/dL Invalid Interpretation Code AO ADM SS Glucose [Mass/Vol] 105 mg/dL Normal 83 - 110 mg/dL AO ADM SS HbA1c (Bld) [Mass fraction] 5.7 % Normal 4.3 - 6.4 % AO ADM SS Hematocrit (Bld) [Volume fraction] 44.0 % Normal 42.0 - 52.0 % AO Workflow SS Hemoglobin (Bld) [Mass/Vol] 14.8 G/dL Normal 14.0 - 18.0 G/dL AO Workflow SS Lymphocyte, Absolute 1.1 103/mcL Normal 0.8 - 3 .9 10^3/mcL AO Workflow SS Lymphocytes/100 WBC (Bld) 16.3 % Normal 10.0 - 50.0 % AO Workflow SS MCH (RBC) [Entitic mass] 29.8 pg Normal 27. 0 - 31.2 pg AO Workflow SS MCHC 33.6 G/dL Normal 31.8 - 35.4 G/dL AO Workflow SS MCV (RBC) [Entitic vol] 88.8 fL Normal 80.0 - 94.0 fL AO Workflow SS Monocyte, Absolute 0.3 103/mcL Normal 0.2 - 1.0 10^3/mcL AO Workflow SS Monocytes/100 WBC (Bld) 4.2 % Normal 1.7 - 13.0 % AO Workflow SS Neutrophil, Absolute 5.0 103/mcL Normal 2.9 - 6 .2 10^3/mcL AO Workflow SS Neutrophils/100 WBC (Bld) 77.4 % Normal 37.0 - 80.0 % AO Workflow SS Platelet mean volume (Bld) [Entitic vol] 9.0 fL Normal 7.4 - 10.4 fL AO Workflow SS Platelets (Bld) [#/Vol] 166 103/mcL Normal 130 - 400 10^3/mcL AO Workflow SS Potassium [Moles/Vol] 4.7 mmol/L Normal 3.5 - 5.1 mmol/L AO ADM SS Prostate specific Ag [Mass/Vol] 0.31 ng/mL Normal 0.00 - 4.00 ng/mL AO ADM SS Protein [Mass/Vol] 6.8 G/dL Normal 6.4 - 8.2 G/dL AO ADM SS RBC (Bld) [#/Vol] 4.96 106/mcL Normal 4.04 - 6.1 3 10^6/mcL AO Workflow SS Sodium [Moles/Vol] 146 mmol/L High 136 - 145 mmol/L AO ADM SS TSH Qn 2.72 m[IU]/L Normal 0.36 - 3.74 mcIU/mL AO ADM SS Urea nitrogen [Mass/Vol] 26 mg/dL High 7 - 18 mg/d L AO ADM SS Urea nitrogen/Creatinine [Mass ratio] 22 ratio Normal 7 - 27 ratio AO ADM SS WBC (Bld) [#/Vol] 6.5 103/mcL Normal 4.6 - 10.8 10^3/mcL AO Workflow SS LABORATORYOrdered By: Rowan Tavarez on 03-05-2023 Cholesterol [Mass/Vol] 145 mg/dL Normal 0 - 2 00 mg/dL AO ADM SS Comment on above: Interpretive Data: C holesterol Reference Interval: Less than 200 Desirable 200-239 Borderline high risk 240 and above High risk Cholesterol in HDL [Mass/Vol] 64 mg/dL High 40 - 60 mg/dL AO ADM SS Cholesterol in LDL [Mass/Vol] 68 mg/dL Normal 0 - 130 mg/dL AO ADM SS Triglyceride [Mass/Vol] 64 mg/dL Normal 0 - 150 mg/dL AO ADM SS Comment on above: Interpretive Data: T riglyceride Reference Interval: Less than 150 Normal 150-199 Borderline high risk 200-499 High risk 500 or higher Very high risk LIPIDon 03-05-2023 Cholesterol [Mass/Vol] 145 mg/dL Normal 0-[facility] [place] on [place]: Result Comment: Chol esterol Reference Interval: Less than 200 Desirable 200-239 Borderline high risk 240 and above High risk Performed By: #### G FR, CMP, DIMER, MG, PBNP #### [address] [address] Cholesterol in HDL [Mass/Vol] 64 mg/dL High 40-60 [facility] ([place] Comment on above: Performed By: #### G FR, CMP, DIMER, MG, PBNP #### [address] [address] Cholesterol in LDL [Mass/Vol] 68 mg/dL Normal 0-130 [facility] ([place] Comment on above: Performed By: #### G FR, CMP, DIMER, MG, PBNP #### [address] [address] Triglyceride [Mass/Vol] 64 mg/dL Normal 0-150 [facility] ([place]) Comment on above: Result Comment: Trig lyceride Reference Interval: Less than 150 Normal 150-199 Borderline high risk 200-499 High risk 500 or higher Very high risk Performed By: #### G FR, CMP, DIMER, MG, PBNP #### [address] [address] PSAon 03-05-2023 Prostate Specific Antigen 0.31 ng/mL Normal 0.00-4.00 [facility] ([place] Comment on above: Performed By: #### G FR, CMP, DIMER, MG, PBNP #### [address] [address] TSHon 03-05-2023 TSH Qn 2.72 m[IU]/L Normal 0.36-3.74 [facility] ([place]) Comment on above: Performed By: #### G FR, CMP, DIMER, MG, PBNP #### [address] [address] 36on 07-13-2022 36 error Normal [facility] 36on 07-10-2022 36 Pts , Scarlet, returned call at this time. Advised of negative results and that no treatment is needed. She verbalized understanding. Normal [facility] 36 Received incoming call from Dr Justin. She states pt's testing has come back negative and he does not have syphilis and does not need to be treated for it. She would like pt notified. Attempted to call pt, no answer. LVM for pt to return call. [facility] 36on 07-06-2022 36 Error no fibroscan order was received for Lili. He is aware he is not to have a firbroscan done. Normal [facility] 36 Left msg for Lili to call our office to schedule a fibroscan. Normal [facility] Office Visiton 07-06-2022 Follow-up visit [id number] Sunday,Lili Carter 1940 M Date Provider Department Center 07/06/2022 56-YAMILETH JUSTIN [facility] ID None No family history on file Level of Service:38374 [place] OFFICE/OUTPATIENT NEW MODERATE MDM 45-59 MINUTES Reason for Visit and Comments: New Patient [542] - New Patient for Latent Syphilis Normal [facility] Progress Noteon 07-06-2022 Progress Note [facility] Infectious Diseases Attending Outpatient Consult Note Reason for Consult: repeatedly positive RPR Requesting Physician: Sheri Polanco APRN-ORDER ENTRY Chief Complaint Patient presents with New Patient New Patient for evaluation for possible Latent Syphilis HISTORY OF PRESENT ILLNESS The patient is a 81 y.o. 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 He is accompanied by his of 25 years. 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 He has had a RPR done as part of his dementia work up which was done as a routine test in March,. There was no titer done on the RPR, and the confirmatory FTA was negative. This was repeated in May,, but there was no quantitative titer done to confirm that this was likely a low titer false positive test, and again the FTA was negative. He has chronic HTN as well as HLP and is on ezetimibe, finasteride, indapamide, simvastatin, and Tamsulosin. A brain MRI was done showing normal ventricles with mild parenchymal loss and chronic microvascular changes - all consistent with a 81 y/o man with both chronic HTN and HLP. 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 No Known Allergies Social History Socioeconomic History Marital status: Unknown Spouse name: Not on file Number of children: Not on file Years of education: Not on file Highest education level: Not on file Occupational History Not on file Tobacco Use Smoking status: Never Smokeless tobacco: Never Substance and Sexual Activity Alcohol use: Not Currently Drug use: Never Sexual activity: Not Currently Other Topics Concern Not on file Social History Narrative Not on file Social Determinants of Health Financial Resource Strain: Not on file Food Insecurity: Not on file Transportation Needs: Not on file Physical Activity: Not on file Stress: Not on file Social Connections: Not on file Intimate Partner Violence: Not on file Housing Stability: Not on file No family history on file. Review of Systems Constitutional: Positive for fatigue. Negative for activity change, chills, fever and unexpected weight change. HENT: Negative. Eyes: Negative. Respiratory: Negative. Cardiovascular: Negative for chest pain and palpitations. Has chronic R leg edema after his knee replacement Gastrointestinal: Negative. Endocrine: Negative. Genitourinary: Positive for frequency and urgency. Musculoskeletal: Positive for arthralgias and gait problem. Negative for joint swelling, myalgias, neck pain and neck stiffness. Skin: Actinic keratosis and palmar eczema Neurological: Negative for dizziness, speech difficulty and headaches. Psychiatric/Behavio ral: Positive for confusion. Negative for agitation. The patient is not nervous/anxious. Memory issues but still driving and doing all of his regular self care Vitals: 07/06/22 1310 BP: 130/80 BP Location: Left arm Patient Position: Sitting BP Cuff Size: Adult Pulse: 66 Temp: 36.7 ?C (98.1 ?F) SpO2: 98% Weight: 200 lb (90.7 kg) Height: 6' (1.829 m) Physical Exam Vitals and nursing note reviewed. Constitutional: Appearance: He is obese. He is not ill-appearing or diaphoretic. Comments: Truncal obesity with BMI of 27 Well kept and pleasant with good comprehension of our conversation and asked good questions. Was a bit slow to respond to questions but had appropriate responses that his confirmed as being correct Has some actinic keratosis scattered on body but no other rashes noted Has no open wounds Has a normal narrow gait without the broad based gate of neurosyphilis Has normal finger to nose. No tremors noted. Symmetric strength in limbs No oral lesions noted and no exudates PERRLA without Argyll Garcia Pupil Has no meningismus with some neck arthritis but good mobility of neck Heart without aortic murmur & with NRR Has clear lungs with good inspiratory and expiratory effort. Obese but non-tender abdomen noted. OA changes noted in hands and he has incision of right wrist where he states he had a prior glass cut before the Carpel Tunnel surgery. No boneychanges consistent with gummatous lesions Neurological: Mental Status: He is alert. No results found for any previous visit. ASSESSMENT: Diagnosis Plan 1. Biological false positive RPR test RPR- quantitation Suspect that this is a false positive as the repeated confirmatory test, FTA, is negative Aging is a common cause of biological false positives as well as autoimmunity, certain medications, other chronic diseases (And which is not applicable) - will get RPR quantitation titer and if low (<1:4 (more content not included)... Normal [facility] LABORATORYOrdered By: SYSTEM SYSTEM on 03-06-2022 Cobalamin (Vitamin B12) [Mass/Vol] 573 pg/mL Invalid Interpretation Code 211 - 911 pg/mL ADM SS Folate [Mass/Vol] 27.62 ng/mL Invalid Interpretation Code 5.38 - 24.00 ng/mL ADM SS LABORATORYOrdered By: Rowan Tavarez on 03-06-2022 CRP [Mass/Vol] mg/dL Invalid Interpretation Code 0.0 - 0.9 mg/dL AO Chemistry S TSH Qn 1.99 m[IU]/L Invalid Interpretation Code 0.36 - 3.74 mcIU/mL AO ADM SS Vit. D 25-Hydroxy 34.7 ng/mL Invalid Interpretation Code ADM SS Vital Signs Date Time Vital Sign Value Performing Clinician Faci [facility] 06-10-2024 09:06-0400 Body temperature 97.8 [degF] Dr. Cecil Kwok MD Work Phone: [facility] 06-10-2024 09:06-0400 Diastolic blood pressure 76 mm[Hg] Dr. Cecil Kwok MD Work Phone: [facility] 06-10-2024 09:06-0400 Heart rate 69 /min Dr. Cecil Kwok MD Work Phone: [facility] 06-10-2024 09:06-0400 Respiratory rate 16 /min Dr. Cecil Kwok MD Work Phone: [facility] 06-10-2024 09:06-0400 SaO2% (BldA) [Mass fraction] 96 % Dr. Cecil Kwok MD Work Phone: [facility] 06-10-2024 09:06-0400 Systolic blood pressure 131 mm[Hg] Dr. Cecil Kwok MD Work Phone: [facility] 07-06-2022 13:10-0400 Body height 182.9 cm Yamileth Signs Work Phone: [facility] 07-06-2022 13:10-0400 Body mass index (BMI) [Ratio] 27.12 kg/m2 Yamileth Signs Work Phone: [facility] 07-06-2022 13:10-0400 Body temperature 98.1 [degF] Yamileth Justin MD Work Phone: [facility] 07-06-2022 13:10-0400 Body weight 90.72 kg Yamileth Signs Work Phone: [facility] 07-06-2022 13:10-0400 Diastolic blood pressure 80 mm[Hg] Yamileth Signs Work Phone: [facility] 07-06-2022 13:10-0400 Heart rate 66 /min Yamileth Justin MD Work Phone: [facility] 07-06-2022 13:10-0400 SaO2% (BldA) [Mass fraction] 98 % Yamileth Justin MD Work Phone: [facility] 07-06-2022 13:10-0400 Systolic blood pressure 130 mm[Hg] Yamileth Justin MD Work Phone: [facility] Encounters Encounter Date Encounter Type Care Provider Facility Start: 09-06-2024 ambulatory Cecil Leone lity:[facility] Start: 07-18-2024 End: 07-18-2024 ambulatory Cecil Kwok Facility:[facility] [place] Start: 07-14-2024 Non-patient / Non-visit Dr. Terrence chavez MD -[facility] Start: 07-14-2024 End: 07-14-[address] Cecil Kwok MD Work Phone: [facility] Work Phone: Start: 07-14-2024 End: 07-14-2024 Patient encounter procedure Tamie SNIDER -[facility] Work Phone: Start: 07-14-2024 End: 07-14-2024 ambulatory Tamie Hannah Facility:[facility] Start: 07-09-2024 End: 07-09-[address] Cecil Kwok [facility] -[facility] Start: 07-09-2024 End: 07-09-[address] Cecil Kwok MD Work Phone: [facility] Work Phone: Start: 06-10-2024 End: 06-10-[address] Cecil Kwok MD Work Phone: [facility] Work Phone: Start: 06-10-2024 End: 06-10-[address] Cecil Kwok MD -[facility] Start: 06-10-2024 End: 06-10-2024 Patient encounter procedure Tamie SNIDER -[facility] Work Phone: Start: 06-10-2024 End: 06-10-2024 ambulatory Tamie Hannah Facility:[facility] [place] [facility] Start: 06-10-2024 End: 06-10-2024 ambulatory Cecil Kwok Facility:[facility] Start: 05-27-2024 End: 05-27-[address] Cecil Kwok MD Work Phone: [facility] Work Phone: Start: 05-27-2024 End: 05-27-[address] Cecil Kwok MD -Laboratory, [facility] Start: 05-27-2024 End: 05-27-2024 ambulatory Cecil Kwok Facility:[facility] Start: 09-03-2023 End: 09-03-2023 ambulatory CYNTHIA SHEFFIELD DO Facility:B Start: 09-03-2023 End: 09-03-2023 Patient encounter procedure CYNTHIA SHEFFIELD DO [facility] Start: 08-20-2023 End: 08-20-2023 ambulatory CYNTHIA SHEFFIELD DO Facility:[facility] Start: 08-20-2023 End: 08-20-2023 Patient encounter procedure CYNTHIA SHEFFIELD DO [facility] Start: 08-06-2023 End: 08-06-2023 ambulatory CYNTHIA SHEFFIELD DO Facility:[facility] Start: 08-06-2023 End: 08-06-2023 Patient encounter procedure CYNTHIA SHEFFIELD DO [facility] Start: 08-04-2023 End: 08-04-2023 ambulatory CYNTHIA SHEFFIELD DO Facility:[facility] Start: 08-04-2023 End: 08-04-2023 Patient encounter procedure CYNTHIA SHEFFIELD DO [facility] Start: 07-03-2023 ambulatory CYNTHIA SHEFFIELD DO Faci lity:B Start: 07-03-2023 Encounter for genera l adult medical examination without abnormal findings CYNTHIA SHEFFIELD DO Facility:[facility] Start: 07-03-2023 End: 07-07-2023 Outreach Lab CYNTHIA SHEFFIELD DO [facility] Start: 06-28-2023 End: 06-28-2023 ambulatory CYNTHIA SHEFFIELD DO Facility:[facility] Start: 06-28-2023 End: 06-28-2023 Patient encounter procedure CYNTHIA SHEFFIELD DO [facility] Start: 06-26-2023 End: 06-26-2023 ambulatory CYNTHIA E SHEFFIELD DO Facility:[facility] Start: 06-26-2023 End: 06-26-2023 Patient encounter procedure CYNTHIA Kay SHEFFIELD DO [facility] Start: 05-30-2023 End: 05-30-2023 ambulatory CYNTHIA E SHEFFIELD DO Facility:[facility] Start: 05-30-2023 End: 05-30-2023 Patient encounter procedure CYNTHIA Kay SHEFFIELD DO [facility] Start: 03-30-2023 End: 03-30-2023 ambulatory CYNTHIA Kay SHEFFIELD DO Facility:[facility] Start: 03-30-2023 End: 03-30-2023 Patient encounter procedure CYNTHIA Kay SHEFFIELD DO [facility] Start: 03-05-2023 End: 03-05-2023 ambulatory CYNTHIA E SHEFFIELD DO Facility:[facility] Start: 03-05-2023 End: 03-05-2023 Patient encounter procedure CYNTHIA Kay SHEFFIELD DO [facility] Start: 07-07-2022 Telephone encounter Yamileth barrientos MD Work Phone: [facility] Start: 07-06-2022 End: 07-06-2022 ambulatory YAMILETH JUSTIN [facility] Start: 07-06-2022 End: 07-06-2022 Office outpatient new 45 minutes Yamileth Justin MD Work Phone: [facility] Comment on above: Biological false pos itive RPR test (Primary Dx); Subcortical microvascular ischemic occlusive disease; Osteoarthritis of both hips, unspecified osteoarthritis type Start: 06-19-2022 End: 06-19-2022 Patient encounter procedure SHERI POLANCO CLAIMS ANALYST-ORDER ENTRY [facility] Start: 06-06-2022 End: 06-10-2022 Outreach Lab SHERI POLANCO CLAIMS ANALYST-ORDER ENTRY [facility] Start: 03-06-2022 End: 03-06-2022 Patient encounter procedure SHERI POLANCO CLAIMS ANALYST-ORDER ENTRY [facility] Procedures Date Procedure Procedure Detail Performing Clinician Start: 07-09-[address] Bryan Kwok MD Work Phone: Start: 12-18-2014 Colonoscopy SHERIJOSEPH POLANCO CLAIMS ANALYST-ORDER ENTRY Comment on above: Dr Miles-judit sm all polyps removed that were benign, repeat in 5 years Arthroplasty of knee FALLON POLANCO CLAIMS ANALYST-ORDER ENTRY Arthroplasty of knee CYNTHIA W ILKINS DO Carpal tunnel syndro me (disorder) SHERI POLANCO CLAIMS ANALYST-ORDER ENTRY Comment on above: surgery right 0 Hernia repair SHERI STECindy LAZO CLAIMS ANALYST-ORDER ENTRY Prosthetic arthropla sty of the hip SHERIJOSEPH LANDERSER CLAIMS ANALYST-ORDER ENTRY Prosthetic arthropla sty of the hip CYNTHIA SHEFFIELD DO Plan of Treatment Date Care Activity Detail Author Start: 05-01-2028 DTaP/Tdap/Td Vaccine s (2 - Td or Tdap) DTaP/Tdap/Td Vaccines (2 - Td or Tdap) [facility] Start: 07-07-2022 End: 08-06-2022 [facility] eye[facility] T PALLIDUM AB, BY FTA-ABS [facility] eye[facility] T PALLIDUM AB, BY FTA-ABS Lab Routine Positive RPR test Expected: 07/07/2022, Expires: 08/06/2022 [facility] Work Phone: Comment on above: Expected: 07/07/2022 , Expires: 08/06/2022 Start: 10-25-2020 COVID-19 Vaccine (3 - Booster for Pfizer series) COVID-19 Vaccine (3 - Booster for Pfizer series) [facility] Start: 1958 Hepatitis C screening Hepatitis C Sc reening [facility] Start: 1940 Hepatitis B Vaccines (1 of 3 - 3-dose series) Hepatitis B Vaccines (1 of 3 - 3-dose series) [facility] Start: 1940 Lipid panel Lipid Panel [facility] Reagin Ab [Presence] in Serum by RPR RPR Lab Routine Biological false positive RPR test 07/06/2022 1:59 PM EDT [facility] Work Phone: US.doppler Lower extremity vein [facility] Immunizations Immunization Date Immunization Notes Care Provider [facility] 12-11-2022 influenza virus vacc ine, unspecified formulation CYNTHIA SHEFFIELD DO [facility] 11-14-2021 influenza virus vacc ine, unspecified formulation SHERI POLANCO CLAIMS ANALYST-ORDER ENTRY [facility] 12-13-2020 influenza virus vacc ine, unspecified formulation SHERI POLANCO CLAIMS ANALYST-ORDER ENTRY [facility] 08-30-2020 SARS-CoV-2 mRNA (tozinameran) vaccine SHERI POLANCO CLAIMS ANALYST-ORDER ENTRY [facility] Comment on above: Result Comment: 2021: [id number] 08-09-2020 SARS-CoV-2 mRNA (tozinameran) vaccine SHERI POLANCO CLAIMS ANALYST-ORDER ENTRY [facility] Comment on above: Result Comment: 2021: [id number] 05-05-2020 zoster vaccine recombinant SHERI POLANCO CLAIMS ANALYST-ORDER ENTRY [facility] 02-10-2020 zoster vaccine recombinant SHERI POLANCO CLAIMS ANALYST-ORDER ENTRY [facility] 12-18-2019 influenza virus vacc ine, unspecified formulation SHERI POLANCO CLAIMS ANALYST-ORDER ENTRY [facility] 12-18-2019 pneumococcal polysaccharide vaccine, 23 valent SHERI POLANCO CLAIMS ANALYST-ORDER ENTRY [facility] 12-17-2018 influenza virus vacc ine, unspecified formulation SHERI POLANCO CLAIMS ANALYST-ORDER ENTRY [facility] 12-17-2018 pneumococcal conjuga te vaccine, 13 valent SHERI POLANCO CLAIMS ANALYST-ORDER ENTRY [facility] 05-01-2018 diphtheria and tetan us toxoids, adsorbed for pediatric use SHERI POLANCO CLAIMS ANALYST-ORDER ENTRY [facility] 05-01-2018 tetanus toxoid, redu kelly diphtheria toxoid, and acellular pertussis vaccine, adsorbed SHERI POLANCO CLAIMS ANALYST-ORDER ENTRY [facility] 12-10-2017 influenza virus vacc ine, unspecified formulation SHERI POLANCO CLAIMS ANALYST-ORDER ENTRY [facility] 01-04-2017 influenza virus vacc ine, unspecified formulation SHERI POLANCO CLAIMS ANALYST-ORDER ENTRY [facility] 12-13-2011 influenza virus vacc ine, unspecified formulation SHERI POLANCO CLAIMS ANALYST-ORDER ENTRY [facility] Payers Date Payer Category Payer Self-pay 2022 Medicare [employer] MED[employer]VANTAGE [employer] MEDICARE [id number] 2022-Present [address] [address] [place] [address] Medicare HMO [id number] 2022 Medicare [id number] 2007 Medicare [id number] 1940 Unknown [id number] [id number] 1942 Unknown [id number] 2.16.840.1.433062.3.579.2.62 1942 Unknown [id number] 2.16.840.1.574870.3.579.2.62 1942 Unknown [id number] 2.16.840.1.914327.3.579.2.627 1942 Unknown [id number] 2.16.840.1.644108.3.579.2.62 1942 Unknown [id number] 2.16.840.1.755481.3.579.2.627 1942 Unknown [id number] 2.16.840.1.156115.3.579.2.62 1942 Unknown [id number] 2.16.840.1.235865.3.579.2.627 1942 Unknown [id number] 2.16.840.1.439478.3.579.2.62 1942 Unknown [id number] 2.16.840.1.062285.3.579.2.627 Unknown [id number] 2.16.840.1.218743.3.579.2.462 Unknown [id number] 2.16.840.1.153485.3.579.2.462 Unknown [id number] 2.16.840.1.909963.3.579.2.462 Unknown [id number] 2.16.840.1.092568.3.579.2.462 Unknown [id number] 2.16.840.1.722067.3.579.2.462 Unknown [id number] 2.16.840.1.679950.3.579.2.462 Unknown [id number] 2.16.840.1.907213.3.579.2.462 Unknown [id number] 2.16.840.1.491152.3.579.2.462 Social History Date Type Detail Facility Start: 11-28-2018 End: 06-10-2022 Tobacco smoking status Never smoked tobacco (finding) [facility] Start: 1940 Sex Assigned At Male [facility] Start: 07-06-2022 Tobacco use and exposure Smokeless tobacco non-user [facility] Start: 07-06-2022 Alcohol intake Ex-drinker (finding) [facility] Start: 1940 Sex Assigned At Not on file [facility] Start: 06-26-2022 End: 07-06-2022 Exposure to SARS-CoV-2 (event) Not sure [facility] Start: 06-11-2024 End: 07-17-2024 Sex Male (finding) [facility] Clinical Notes 06-06-2022 to 06-10-2024 Note Date & Type Note Facility 06-10-2024 Evaluation note Diagnosis Onset Date Resolution Lymphedema acute June 10 8:28am Ulcer of right lower leg acute June 10, 2024 8:28am Right leg swelling chronic June 10, 2024 8:28am [facility] Work Phone: [phone] 483-753903-26-2024 Note* Exam Date Time Procedure Performing Provider Status 06/26/23 9:33 AM Echocardiogram, Adult - CV Auth (Verified) [facility] 12-29-2023 Note ORIGINAL EXAMINATION: BONE DENSITOMETRY 03/30/2023 11:28 am TECHNIQUE: A bone density dual x-ray absorptiometry (DEXA) scan was performed of the lumbar spine and right hip on a Hologic system. COMPARISON: None. HISTORY: ORDERING SYSTEM PROVIDED HISTORY: Reason for Exam: Osteoporosis Screening FINDINGS: RIGHT HIP: The bone mineral density in the total hip is measured at 1.124 g/cm2 corresponding to a T-score of 0.6. This is within the normal range by WHO criteria. The bone mineral density of the femoral neck is measured at 0.948 g/cm2 corresponding to a T-score of 0.1. This is within the normal range by WHO criteria. Lumbar spine: The bone mineral density of the lumbar spine, L1 through L4 is measured at 1.443 g/cm2 corresponding to a T-score of 3.2. This is within the normal range by WHO criteria. 10 year fracture Risk: FRAX not reported because all T-scores for the total hip, spine and femoral neck are at or above -1.0. IMPRESSION: by WHO criteria. Interpreted by: Georgiana Cantor Preliminary Report By: Georgiana Cantor Electronically signed By Georgiana Cantor Dictated Date: 03/30/2023 4:55:55 PM Prelim Date: 03/30/2023 4:57:59 PM Sign Date: 03/30/2023 4:57:59 PM Ordering Provider: [facility]04-13-2023 Miscellaneous Notes* Telephone Encounter - Yamileth Justin MD - 07/13/2022 1:01 PM EDT [id number] Telephone encounter Note* Telephone Encounter - Yamileth Justin MD - 07/13/2022 1:01 PM EDT error [id number] History of Present illness Narrative* Yamileth Justin MD - 07/06/2022 1:00 PM EDT Images from the original note were not included. 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 He is accompanied by his of 25 years. 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 He has had a RPR done as part of his dementia work up which was done as a routine test in . There was no titer done on the RPR, and the confirmatory FTA was negative. This was repeated in May,, but there was no quantitative titer done to confirm that this was likely a low titerfalse positive test, and again the FTA was negative. He has chronic HTN as well as HLP and is on ezetimibe, finasteride, indapamide, simvastatin, and Tamsulosin. A brain MRI was done showing normal ventricles with mild parenchymal loss and chronic microvascularchanges - all consistent with a 81 y/o man with both chronic HTN and HLP. 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 No Known Allergies Social History Socioeconomic History Marital status: Unknown Spouse name: Not on file Number of children: Not on file Years of education: Not on file Highest education level: Not on file Occupational History Not on file Tobacco Use Smoking status: Never Smokeless tobacco: Never Substance and Sexual Activity Alcohol use: Not Currently Drug use: Never Sexual activity: Not Currently Other Topics Concern Not on file Social History Narrative Not on file Social Determinants of Health Financial Resource Strain: Not on file Food Insecurity: Not on file Transportation Needs: Not on file Physical Activity: Not on file Stress: Not on file Social Connections: Not on file Intimate Partner Violence: Not on file Housing Stability: Not on file No family history on file. Review of Systems Constitutional: Positive for fatigue. Negative for activity change, chills, fever and unexpected weight change. HENT: Negative. Eyes: Negative. Respiratory: Negative. Cardiovascular: Negative for chest pain and palpitations. Has chronic R leg edema after his knee replacement Gastrointestinal: Negative. Endocrine: Negative. Genitourinary: Positive for frequency and urgency. Musculoskeletal: Positive for arthralgias and gait problem. Negative for joint swelling, myalgias, neck pain and neck stiffness. Skin: Actinic keratosis and palmar eczema Neurological: Negative for dizziness, speech difficulty and headaches. Psychiatric/Behavioral: Positive for confusion. Negative for agitation. The patient is not nervous/anxious. Memory issues but still driving and doing all of his regular self care Vitals: 07/06/22 1310 BP: 130/80 BP Location: Left arm Patient Position: Sitting BP Cuff Size: Adult Pulse: 66 Temp: 36.7 C (98.1 F) SpO2: 98% Weight: 200 lb (90.7 kg) Height: 6' (1.829 m) Physical Exam Vitals and nursing note reviewed. Constitutional: Appearance: He is obese. He is not ill-appearing or diaphoretic. Comments: Truncal obesity with BMI of 27 Well kept and pleasant with good comprehension of our conversation and asked good questions. Was a bit slow to respond to questions but had appropriate responses that his confirmed as being correct Has some actinic keratosis scattered on body but no other rashes noted Has no open wounds Has a normal narrow gait without the broad based gate of neurosyphilis Has normal finger to nose. No tremors noted. Symmetric strength in limbs No oral lesions noted and no exudates PERRLA without Argyll Garcia Pupil Has no meningismus with some neck arthritis but good mobility of neck Heart without aortic murmur & with NRR Has clear lungs with good inspiratory and expiratory effort. Obese but non-tender abdomen noted. OA changes noted in hands and he has incision of right wrist where he states he had a prior glass cut before the Carpel Tunnel surgery. No boneychanges consistent with gummatous lesions Neurological: Mental Status: He is alert. No results found for any previous visit. ASSESSMENT: Diagnosis Plan 1. Biological false positive RPR test RPR- quantitation Suspect that this is a false positive as the repeated confirmatory test, FTA, is negative Aging is a common cause of biological false positives as well as autoimmunity, certain medications,other chronic diseases (And which is not applicable) - will get RPR quantitation titer and if low (<1:4) will tell patient to ignore this false lab test - no need for Spinal tap at this time 2. Subcortical microvascular ischemic occlusive disease 3. Osteoarthritis of both hips, unspecified osteoarthritis type I spent total time 45 minutes caring for this patient today,including >51% in reviewing labs, records from another facility, interviewing and examining the patient and documenting, writing orders (prescriptions/meds), and instructing the patient on self care. Yamileth Justin MD, MD, FACP documented in this [facility]03-10-2023 Note [facility]IAL [facility] [phone] Note [facility] 03-10-2023 Note FACIAL [employer] [phone] Note [facility] [employer] 03-09-2023 Note FACIAL SK[employer]ESION [facility] 03-09-2023 Note FACIAL SK[employer]ESION [facility] 03-09-2023 Note FACIAL [employer]ESION [facility] 03-07-2023 Evaluation + Plan note Future Scheduled Tests Radiology* CT Head or Brain w/o Contrast 06/06/22 [facility] Evaluation + Plan note Future Appointments Appointment Date:06/05/2022 09:30:00 AM Scheduled Provider:SHERI POLANCO Location:[facility] Appointment Type:PC OV Diagnostic Tests Pending * Rapid Plasma Reagin Test 03/06/22 [facility] Evaluation + Plan note Future Appointments Appointment Date:06/26/2022 10:00:00 AM Scheduled Provider: Location:[facility] Appointment Type:CT Head or Brain w/o Contrast Future Scheduled Tests Radiology* CT Head or Brain w/o Contrast 06/26/22 [facility] evaluation + Plan note Future Appointments Appointment Date:03/09/2023 09:30:00 AM Scheduled Provider:CYNTHIA SHEFFIELD DO Location:[facility] Appointment Type: Wellness Medicare Diagnostic Tests Pending * LDL Cholesterol (Direct) 03/05/23 Future Scheduled Tests Laboratory* Albumin/Creatinine Ratio, Random Urine 02/26/23 Radiology* CT Head or Brain w/o Contrast 06/26/22 [facility] [place]!aluation + Plan note Future Appointments Appointment Date:09/07/2023 09:00:00 AM Scheduled Provider:CYNTHIA SHEFFIELD DO Location:[facility] Appointment Type:PC OV Future Scheduled Tests Laboratory* Albumin/Creatinine Ratio, Random Urine 02/26/23 Radiology* CT Head or Brain w/o Contrast 06/26/22 [facility] [place]!aluation + Plan note Future Appointments Appointment Date:06/08/2023 01:30:00 PM Scheduled Provider:CYNTHIA SHEFFIELD DO Location:[facility] Appointment Type:PC OV Appointment Date:09/07/2023 09:00:00 AM Scheduled Provider:CYNTHIA SHEFFIELD DO Location:[facility] Appointment Type: OV Future Scheduled Tests Laboratory* Albumin/Creatinine Ratio, Random Urine 05/30/23 * Albumin/Creatinine Ratio, Random Urine 02/26/23 Radiology* CT Head or Brain w/o Contrast 06/26/22 [facility] evaluation + Plan note Future Appointments Appointment Date:07/03/2023 11:30:00 AM Scheduled Provider:CYNTHIA SHEFFIELD DO Location:[facility] Appointment Type:PC OV Appointment Date:09/07/2023 09:00:00 AM Scheduled Provider:CYNTHIA SHEFFIELD DO Location:[facility] Appointment Type:PC OV Future Scheduled Tests Laboratory* Basic Metabolic Panel 06/08/23 * Albumin/Creatinine Ratio, Random Urine 05/30/23 * Albumin/Creatinine Ratio, Random Urine 02/26/23 [facility] Evaluation + Plan note Future Appointments Appointment Date:07/03/2023 11:30:00 AM Scheduled Provider:CYNTHIA SHEFFIELD DO Location:[facility] Appointment Type:PC OV Appointment Date:09/07/2023 09:00:00 AM Scheduled Provider:CYNTHIA SHEFFIELD DO Location:[facility] Appointment Type:PC OV Future Scheduled Tests Laboratory* Albumin/Creatinine Ratio, Random Urine 05/30/23 * Albumin/Creatinine Ratio, Random Urine 02/26/23 [facility] Evaluation + Plan note Future Appointments Appointment Date:10/08/2023 09:00:00 AM Scheduled Provider:CYNTHIA SHEFFIELD DO Location:[facility] Appointment Type:PC OV Future Scheduled Tests Laboratory* Basic Metabolic Panel 07/03/23 * Magnesium Level 07/03/23 * Albumin/Creatinine Ratio, Random Urine 02/26/23 [facility] Evaluation + Plan note Future Appointments Appointment Date:10/08/2023 09:00:00 AM Scheduled Provider:CYNTHIA SHEFFIELD DO Location:[facility] Appointment Type:PC OV Future Scheduled Tests Laboratory* Albumin/Creatinine Ratio, Random Urine 02/26/23 [facility] Evaluation + Plan note Future Appointments Appointment Date:10/08/2023 09:00:00 AM Scheduled Provider:CYNTHIA SHEFFIELD DO Location:[facility] Appointment Type:PC OV [facility] Evaluation note* Diagnosis Biological false positive RPR test- Primary Subcortical microvascular ischemic occlusive disease Osteoarthritis of both hips, unspecified osteoarthritis type documented in [facility] encounter [facility] Diagnosis Positive RPR test- Primary documented in this encounter [facility] noteNo assessment information availableWCleveland Clinic [facility] Work Phone: Hospital course Narrative No data available for this section [facility] Hospital Discharge instructions No data available for this section [facility] Progress note No data available for this section [facility] Reason for referral (narrative)No reason for referral information availableWCleveland Clinic Children[facility] Work Phone: Summary Purpose Family History No Family History Records Found Relationship Condition Age at Onset Recorded Date/T js mother Coronary artery disease Unknown father Malignant neoplasm Unknown Advance Directives No Advanced Directives Records Found Advance Directive Response Recorded Date/ Time Advance Directives No February 03, 2016 2:58pm Chief Complaint and Reason for Visit Chief Complaint Admit Date CKD Stage 3, R leg swelling June 10, 2024 8:28am RT LEG SWELLING July 14, 2024 10: 06am Reason for Visit Admit Date Lymphedema June 10, 2024 8:2 8am Ulcer of right lower leg June 10 8:28am Right leg swelling June 10, 2024 8:2 8am Chief Complaint Admit Date CKD Stage 3, R leg swelling June 10, 2024 8:28am Additional Source Comments Care Team (unrecognized sect ion and content) Care Team Personnel Name: SHERI POLANCO Position: P4 Advanced Practice Nurse Member Role: Primary Care Physician Address: Address: [address] [place] [address] Care Team Related Persons Name: Care Team Personnel Name: SHERI POLANCO Position: P4 Advanced Childcare Director Member Role: Primary Care Physician Address: Address: [address] [place] [address] Care Team Related Persons Name: Patient Care team informatio n (unrecognized section and content) Team Status: Active Member Role Status Dates Dr. Mina Betts DO Family Provider Active Dr. Cecil Kwok MD Primary Care Provider Acti ve Team Status: Inactive Member Role Status Dates Dr. Cecil Kwok MD Primary Care Provider Acti ve Start: May 27, 2024 End: May 27, 2024 Dr. Cecil Kwok MD Attending Provider Active Start: May 27, 2024 End: May 27, 2024 Dr. Cecil Kwok MD Referring Provider Active Start: May 27, 2024 End: May 27, 2024 Team Status: Inactive Member Role Status Dates Dr. Cecil Kwok MD Primary Care Provider Acti ve Start: June 10, 2024 End: June 10, 2024 Dr. Cecil Kwok MD Referring Provider Active Start: June 10, 2024 End: June 10, 2024 TYLOR Prado Attending Provider Active Star t: June 10, 2024 End: June 10, 2024 Team Status: Active Member Role Status Dates Dr. Cecil Kwok MD Primary Care Provider Acti ve Start: June 10, 2024 Dr. Cecil Kwok MD Attending Provider Active Start: June 10, 2024 Dr. Cecil Kwok MD Referring Provider Active Start: June 10, 2024 Team Status: Inactive Member Role Status Dates Dr. Cecil Kwok MD Primary Care Provider Acti ve Start: June 10, 2024 End: June 10, 2024 Dr. Cecil Kwok MD Attending Provider Active Start: June 10, 2024 End: June 10, 2024 Dr. Cecil Kwok MD Referring Provider Active Start: June 10, 2024 End: June 10, 2024 Team Status: Active Member Role Status Dates Dr. Cecil Kwok MD Primary Care Provider Acti ve Team Status: Inactive Member Role Status Dates Dr. Cecil Kwok MD Primary Care Provider Acti ve Start: July 09, 2024 End: July 09, 2024 Dr. Cecil Kwok MD Attending Provider Active Start: July 09, 2024 End: July 09, 2024 Dr. Cecil Kwok MD Referring Provider Active Start: July 09, 2024 End: July 09, 2024 Team Status: Active Member Role Status Dates Dr. Cecil Kwok MD Primary Care Provider Acti ve Start: July 14, 2024 TYLOR Prado Attending Provider Active Star t: July 14, 2024 TYLOR Prado Referring Provider Active Star t: July 14, 2024 Team Status: Active Member Role Status Dates Dr. Cecil Kwok MD Primary Care Provider Acti ve Start: July 14, 2024 Dr. Terrence Goodwin MD Attending Provider Active S tart: July 14, 2024 Team Status: Inactive Member Role Status Dates Dr. Cecil Kwok MD Primary Care Provider Acti ve Start: July 14, 2024 End: July 14, 2024 TYLOR Prado Attending Provider Active Star t: July 14, 2024 End: July 14, 2024 TYLOR Prado Referring Provider Active Star t: July 14, 2024 End: July 14, 2024 Reason for Visit (unrecogniz ed section and content) Reason Comments New Patient New Patient for Late nt Syphilis Specialty Diagnoses / Procedures Referred By Contac t Referred To Contact Infectious Diseases Diagnoses Latent syphilis, unspecified as early or late Positive RPR x2 blood draws Procedures NC OFFICE/OUTPATIENT NEW MODERATE MDM 45-59 MINUTES Sheri Polanco, CLAIMS ANALYST - ORDER ENTRY [address] [place] [address] [facility] [address] [place] [address] Referral ID Status Reason Start Date Expiration Date V isits Requested Visits Authorized [id number] Pending Review 06/27/2022 06/28/2023 1 1 (unrecognized sect ion and content) No Status Records FoundNo Status Records FoundNo Status Records Found INFORMATION SOURCE (unrecogn ized section and content) DATE CREATED AUTHOR 07/15/2022 [facility] DATE CREATED AUTHOR AUTHOR'S ORGANIZ ATION 09/04/2023 [facility] ([place]) DATE CREATED AUTHOR AUTHOR'S ORGANIZ ATION 09/05/[address] [facility] Goals (unrecognized section and content) Goals may be documented in a n alternate section FOR RECORDS PERTAINING TO PATIENTS WHO ARE OR HAVE BEEN ENROLLED IN A CHEMICAL DEPENDENCY/SUBSTANCEABUSE PROGRAM, SOME INFORMATION MAY BE OMITTED. This clinical summary was aggregated from multiple sources. Caution should be exercised in using it in the provision of clinical care. This summary normalizes information from multiple sources, and as a consequence, information in this document may materially change the coding, format and clinical context of patient data. In addition, data may be omitted in some cases. CLINICAL DECISIONS SHOULD BE BASED ON THE PRIMARY CLINICAL RECORDS. [facility]. provides no warranty or guarantee of the accuracy or completeness of information in this document.
--- NOTE | 2024-09-06 15:30 | MRI_ITS ---
PROCEDURE: BRAIN WITHOUT CONTRAST 09/06/2024 REASON FOR EXAM: DEMENTIA TECHNIQUE: Noncontrast brain MRI. Multiplanar and multisequence images were obtained. COMPARISON: None. FINDINGS: Mild diffuse cortical atrophy, commensurate with the patient's age. A few scattered T2 hyperintense foci in the periventricular and subcortical white matter suggestive of minimal chronic ischemic white matter disease. 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 No significant mass effect or associated acute hemorrhagic products. Mild chronic mucosal inflammatory changes of the ethmoid air cells. Incidental cystic lesion of the left parotid gland measuring 2.6 x 2.4 cm, probably benign and chronic. The ventricles and remaining extra-axial spaces are normal for the patient's age. No abnormality is identified in the basal ganglia and thalami. No abnormality is identified in the brainstem. Unremarkable cerebellum. There is no midline shift or brain herniation. There is no demonstrated extra-axial, intraparenchymal, or intraventricular hemorrhage. There are no abnormal intra-or extra-axial fluid collections. There are no areas of restricted diffusion to suggest acute ischemia. The cerebellopontine angles, internal auditory canals and the cisternal portions of the accoustico - facial nerves are unremarkable. Unremarkable exam of the skull. Normal soft tissue structures. The remaining visualized paranasal sinuses and mastoid air cells are clear. The visualized portions of the orbits are unremarkable. MRI/Brain without Contrast IMPRESSION: Mild diffuse cortical atrophy, commensurate with the patient's age. A few scattered T2 hyperintense foci in the periventricular and subcortical whi te matter suggestive of minimal chronic ischemic white matter disease. 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 No significant mass effect or associated acute hemorrhagic products. Mild chronic mucosal inflammatory changes of the ethmoid air cells. Incidental cystic lesion of the left parotid gland measuring 2.6 x 2.4 cm, prob ably benign and chronic. Reading Location: [place] [address]
== END | disposition home or self-care (01) ==
LOC: MRI 14:34
PROVIDERS: PCP Family Medicine; Referring Provider Family Medicine; Visit Provider Family Medicine
DX: G31.1 Senile degeneration of brain, not elsewhere classified (principal); F03.90 Unspecified dementia, unspecified severity, without behavioral disturbance, psychotic disturbance, mood disturbance, and anxiety; G96.01 Cranial cerebrospinal fluid leak, spontaneous; K11.6 Mucocele of salivary gland
CPT/HCPCS: 70551